=== PATIENT | female | born 1960 | race Two or more races ===

== ENCOUNTER 2024-03-03 16:07 | Emergency (ER) | payer MEDICAID, SELFPAY ==
[2024-03-03] VITALS (24 sets, daily range): BP systolic 120–135; BP diastolic 75–107; PULSE 120–160; RESP 16–39; TEMP 37.1; O2SAT 90–100; BMI 29.9
--- NOTE | 2024-03-03 18:17 | EDNOTE_ITS ---
ED Arrhythmia Palp. RME/HPI General Chief Complaint: Arrhythmia/Palpitations Stated Complaint: AFIB RVR Time Seen by Provider: 03/03/24 18:25 Arrival date/time: 03/03/24 16:07 RME / HPI RME / HPI narrative: Dr. Morrison?s Main ED Evaluation: 63yo female with pmhx COPD, asthma, aFib, HTN, DM BIBA presents to the ED for complaints of a cough and palpitations. Patient states she was seen by her PCP today due to having a cough for the last 2 weeks. She reports associated shortness of breath that worsens when she ambulates and lays flat. She denies any fever, chills or any other associated symptoms. Denies any sick contacts. She is not on any oxygen at home. Patient states she has not taken any of her medications in over a year due to having problems with her insurance. She does not have an inhaler or nebulizer machine. She denies any tobacco use, reporting she hasn't smoked in 2 weeks. PCP: D[facility] [employer] Program Manager: Antonioiz Related Data Previous Rx's ?Medication ?Instructions ?Recorded albuterol sulfate 90 mcg/actuation 1 inh inhalation QID PRN shortness 03/03/24 aerosol inhaler of breath or wheezing #8.5 grams apixaban 5 mg tablet (Eliquis) 5 mg PO BID #60 tabs 03/03/24 diltiazem HCl 240 mg capsule,24 240 mg PO QAM #30 caps 03/03/24 hr,extended release prednisone 50 mg tablet 50 mg PO QDAY #5 tabs 03/03/24 Allergies Allergy/AdvReac Type Severity Reaction Status Date / Time ibuprofen Allergy Severe TONGUE Verified 11/26/22 09:28 SWELLS aspirin Allergy Mild RASH Verified 11/26/22 09:28 Penicillins Allergy Mild Rash Verified 11/26/22 09:28 Review of Systems Review of Systems Systems Reviewed: All systems reviewed, normal except as documented Narrative Review of Systems: Gen: No fever, no chills, no weight loss EYES: No discharge, no visual changes, no pain HEENT: No ear pain, no congestion, no sore throat PULM: + shortness of breath, + cough, no congestion CV: No chest pain, no dyspnea on exertion, + palpitations GI: No nausea, no vomiting, no diarrhea, no pain, no constipation : No frequency, no urgency, no dysuria Musc/skel: No joint pain, no back pain Skin: No rash. Warm and dry. Psyc: No hallucinations, no depression Heme/Lymph: No easy bleeding or bruising tendencies Neuro: No weakness, no headache Past Medical History Past Medical History NEUROLOGIC: Positive Neurological Disorders and Migraine CARDIAC: Positive Cardiac Disorders, Cardiac Arrhythmia, Atrial Fibrillation, Hypercholesterolemia and Hypertension; Negative Congestive Heart Failure RESPIRATORY: Positive Chronic Obstructive Pulmonary Disease (COPD), Asthma, Pneumonia and Sleep Apnea GASTROINTESTINAL: Positive Gastrointestinal Disorders and Gall Bladder Disease GENITOURINARY: Negative Genitourinary Disorders or Renal Disease MUSCULOSKELETAL: Positive Musculoskeletal Disorders and Degenerative Disk Disease ENDOCRINE: Positive Endocrine Disorders and Diabetes Mellitus Type 2; Negative Diabetes Mellitus Type 1 HEMATOLOGIC: Negative Sickle Cell Disease PSYCHO/SOCIAL: Positive Schizophrenia, Bipolar Disorder, Depression, Anxiety and Post Traumatic Stress Disorder Family History FAMILY HISTORY: Positive Family Respiratory Disorders, Family Cardiac Disorders and Family Gastrointestinal Problems; Negative Family Neurologic Problems Surgical History SURGICAL: Positive Abdominal Surgery and Section Social History SMOKING STATUS: Former smoker SECOND HAND EXPOSURE: Yes SUBSTANCE USE: marijuana and methamphetamine OCCUPATION: unemployed ED Exam Narrative Physical exam: GENERAL APPEARANCE: AxOx4, generally well-appearing, no acute distress. HEENT: NC, AT. MMM. EOMI, clear conjunctiva, oropharynx clear. NECK: Supple without lymphadenopathy. No stiffness or restricted ROM. HEART: Normal rate and regular rhythm, normal S1/S1, no m/r/g LUNGS: Moving air well. Inspiratory and expiratory wheezes. No crackles heard. ABDOMEN: Soft, nontender, nondistended with good bowel sounds heard. BACK: No midline C/T/L spine pain, [id number]-aw-zccxov scoliosis, No CVAT, no obvious deformity. EXTREMITIES: Without cyanosis, clubbing or edema. MUSCULOSKELETAL: FROM of all major joints, no chest tenderness NEUROLOGICAL: Grossly nonfocal. Alert and oriented, moving all 4 extremities. CN not formally tested but appear grossly intact. Observed to ambulate with normal gait. Skin: Warm and dry without any rash. Course Course Course Narrative: CXR is ordered for determining the etiology of cough. Quality Measures none Reevaluation(s) Reevaluation #1: Patient feels better compared to when she initially came in, but still has small coughing episodes. Patient is still tachycardic in the 120s after receiving Cardizem 60mg. Additional Cardizem 30mg ordered before the patient is discharged home. Will send an albuterol inhaler and steroids to her pharmacy. Time: 23:15 Vital Signs Vital signs: Vital Signs Temperature 98.7 F 03/03/24 16:10 Pulse Rate 138 H 03/03/24 16:10 Respiratory Rate 16 03/03/24 16:10 Blood Pressure 135/75 H 03/03/24 16:10 Pulse Oximetry (%) 98 03/03/24 16:10 Oxygen Delivery Method Room Air 03/03/24 16:10 Pulse ox is 98% on room air, which is normal according to my interpretation. Arrhythmia/Palpitations MDM Narrative MDM Narrative:: Scribe Attestation: 03/03/24 - Tita Herrera am scribing for and in the presence of Dr. Morrison. Patient data External records reviewed:: [facility] previous records (Per chart review, patient was seen here on 03/26/23 for COPD.) Clinical information provided by:: patient Social determinants that could affect healthcare access:: none Patient has the following chronic illnesses:: COPD, asthma, aFib, HTN, DM How is presenting disease/condition affected by chronic disease/condition?: caused by Evaluation data The following diagnostics were reviewed and interpreted by me:: lab results, radiology exam(s) and EKG tracing(s) Lab and/or radiology exams considered but not ordered:: none Interpretation Summary: WBC count is normal, HnH is stable at 10.5/33.0, BUN is elevated at 24, UA is unremarkable, according to my interpretation. EKG done at 1717, aFib RvR, rate of 153, normal intervals, normal axis, no acute ST or T wave changes, according to my interpretation. ------ [place] [facility] Report Signed Patient: JHOANA JUAREZ [facility]. Record#: [id number] Birthdate: 1960 Age/Sex: 63 / F Location: [facility] Attending Dr: Ordering Physician: Ron Morrison MD Date of Service: 03/03/24 Procedure(s): XR chest 2V Accession Number(s): [id number] cc: Wilbert Gallego MD; Ron Morrison MD; Cruz Onofre MD~ Examination: PA lateral chest 2 views Technique: Upright PA lateral chest 2 views Exam date and time: March 03, 2024 1857 hrs. Comparison 12/25/2023 Indications: Onset shortness of breath and atrial fibrillation today. Findings: Mild to moderate enlargement left ventricle Moderate vascular congestion Suspicious for early septal edema at the lung bases Moderate osteopenia Impression: Early heart failure Dictated By: Cruz Onofre MD Signed By: <Electronically signed by Cruz Onofre MD in OV> 03/03/24 1910 Medications / Prescriptions Medications or Prescriptions considered but not ordered:: none Medication administrations:: see above, if any Consultations Consultation(s) initiated? (list below): No Diagnosis Differential diagnosis arrhythmia/palpitations: sinus tachycardia, artial fibrillation, artial flutter and other (COPD exacerbation, hyperglycemia without ketosis) Most likely diagnosis given after review of the tests above:: see below Admission Indicated Admission indicated?: not indicated Admission Request Was there a request for admission?: No Disposition Plan Disposition Plan: Discharge Discharge Attestation Discharge Attestation: The patient and all family members were given an opportunity to ask questions and understood the discharge instructions. Discharge instructions specifically effects, indications for sooner follow up or return to the emergency department, and the expected course of current diagnosis. Patient condition: Stable Critical Care Time Critical Care Time Critical Care Time: Yes Total Critical Care Time (min.): 36 Attestation: The high probability of sudden, clinically significant deterioration in the patient?s condition required the highest level of my preparedness to intervene urgently. The services I provided to this patient were to treat and/or prevent clinically significant deterioration. Services included the following: chart data review, reviewing nursing notes and/or old charts, documentation time, organization development consultant collaboration regarding findings and treatment options, medication orders and management, direct patient care, vital sign assessments and ordering, interpreting and reviewing diagnostic studies and lab tests. Aggregate critical care time includes only time during which I was engaged in work directly related to the patient?s care, as described above, whether at bedside or elsewhere in the Emergency Department. It did not include time spent performing other reported procedures or the services of residents, students, nurses or physician assistants. Discharge Plan Plan Patient Disposition: HOME (Self Care) Prescriptions/Referrals Prescriptions/Med Rec: New albuterol sulfate 90 mcg/actuation HFA aerosol inhaler 1 inh inhalation QID PRN (Reason: shortness of breath or wheezing) Qty: 8.5 0RF prednisone 50 mg tablet 50 mg PO QDAY Qty: 5 0RF Eliquis 5 mg tablet 5 mg PO BID Qty: 60 0RF diltiazem HCl 240 mg capsule,extended release 24 hr 240 mg PO QAM Qty: 30 0RF Referrals: Wilbert Gallego MD [Primary Care Provider] - In 1 week Problem List Clinical Impression: Atrial fibrillation, rapid, COPD exacerbation, Atrial fibrillation Patient/Caregiver Discharge Instructions Education Materials: COPD Meds, ED Atrial Fibrillation Additional Instructions: Follow-up with your primary care doctor in 2 to 3 days for recheck. You can return to the emergency department sooner symptoms worsen or if you notice any new, concerning issues. Print Language: Syriac Stand Alone Forms: [facility]ia Award Info., Patient Portal Info Letter
--- NOTE | 2024-03-03 18:28 | PC.NURSE ---
DR GAGNON AT BEDSIDE ASSESSING PATIENT.
--- NOTE | 2024-03-03 18:47 | XR_ITS ---
Examination: PA lateral chest 2 views Technique: Upright PA lateral chest 2 views Exam date and time: March 03, 2024 1857 hrs. Comparison 12/25/2023 Indications: Onset shortness of breath and atrial fibrillation today. Findings: Mild to moderate enlargement left ventricle Moderate vascular congestion Suspicious for early septal edema at the lung bases Moderate osteopenia Impression: Early heart failure
[2024-03-03 18:57] LABS: Basophils # (Auto) 0.1 Thou/mm3 (0.0-0.2); Basophils % (Auto) 1 % (0-2.5); Eosinophils % (Auto) 10 % (0-10); Hemoglobin 10.5 g/dL (12.0-16.0); Immature Granulocytes % (Auto) 0 % (0-0); Immature Granulocytes Auto 0.03 Thou/mm3 (0.00-0.00); Lymphocytes # (Auto) 2.6 Thou/mm3 (1.0-4.8); Lymphocytes % (Auto) 26 % (10-50); Mean Corpuscular HGB Conc 31.8 g/dl (31.0-37.0); Mean Corpuscular Hemoglobin 27.9 pg (25.0-35.0); Mean Corpuscular Volume 88 fL (80-100); Monocytes # (Auto) 0.7 Thou/mm3 (0.0-0.8); Monocytes % (Auto) 7 % (0-12); Neutrophils # (Auto) 5.6 Thou/mm3 (1.8-7.7); Neutrophils % (Auto) 56 % (37-80); Nucleated Red Blood Cell % 0 /100 WBC (0); Platelet Count 442 Thou/mm3 (140-440); RDW Standard Deviation 45.9 fL (36.4-46.3); Red Blood Count 3.77 Miln/mm3 (4.00-5.20); White Blood Count 9.9 Thou/mm3 (3.6-11.0)
[2024-03-03 19:15] LABS: Alanine Aminotransferase 27 U/L (10-49); Albumin, Serum 4.2 gm/dL (3.4-4.8); Albumin/Globulin Ratio 1.2 (1.2-2.2); Alkaline Phosphatase 95 U/L (46-116); Anion Gap 8 (7-16); Aspartate Amino Transferase 16 U/L (0-34); BUN/Creatinine Ratio 24 Ratio (12-20); Bilirubin,Total 0.9 mg/dL (0.3-1.2); Blood Urea Nitrogen 17 mg/dL (9-23); Calcium 9.4 mg/dL (8.3-10.6); Calcium (Corrected) 9.4 mg/dL (8.5-10.1); Carbon Dioxide 27.3 mMol/L (20.0-31.0); Chloride 102 mMol/L (98-107); Creatinine (Component) 0.7 mg/dL (0.6-1.3); Globulin 3.5 gm/dL (2.3-3.5); Glucose 93 mg/dL (74-106); Osmolality,Calculated 275 (275-295); Potassium 3.7 mMol/L (3.4-5.1); Sodium 137 mMol/L (136-145); Total Protein 7.7 gm/dL (5.7-8.2); eGFR > 60 See Note
[2024-03-03] MEDS: ALBUTEROL/IPRATROPIUM (Duoneb) RT SOL 3 ML NEBU INH (21:22)
[2024-03-03] MEDS: FUROSEMIDE INJ 10 MG/ML 4ML VIAL 40 MG IVP (21:37)
[2024-03-03] MEDS: DILTIAZEM 30 MG TABLET 60 MG PO (21:39)
[2024-03-03] MEDS: predniSONE 20 MG TABLET 60 MG PO (21:40)
[2024-03-03 22:10] LABS: Collection Type, Urine Clean Catch
[2024-03-03 22:14] LABS: Bilirubin,Urine Negative (Negative); Blood,Urine Negative (Negative); Clarity,Urine Clear (Clear/Hazy); Color,Urine Yellow (Lt Yel-Yel); Glucose, Urine 3+ (Negative); Ketones,Urine Negative (Negative); Leukocyte Esterase,Urine Positive (Negative); Nitrite,Urine Negative (Negative); Protein,Urine Trace (Neg - Trace); RBC,Urine 3 /hpf (0-3); Specific Gravity,Urine 1.023 (1.001-1.035); Squamous Epithelial Cell,Urine 1 /hpf (0-5); WBC,Urine 12 /hpf (0-5)
[2024-03-03] MEDS: DILTIAZEM 30 MG TABLET PO (23:32)
== END 2024-03-04 00:15 | disposition home or self-care (01) ==
PROVIDERS: Emergency Provider Emergency Medicine; PCP Family Medicine
DX: I48.91 Unspecified atrial fibrillation (principal); J44.1 Chronic obstructive pulmonary disease with (acute) exacerbation; I11.0 Hypertensive heart disease with heart failure; I50.9 Heart failure, unspecified; Z87.891 Personal history of nicotine dependence
CPT/HCPCS: 36415; 71046; 80053; 81001; 85025; 94640; 96374; 99284; A9270; J1940; J7512

== ENCOUNTER 2024-03-26 23:56 | Inpatient (IN) | payer MEDICAID, SELFPAY ==
[2024-03-27] VITALS (34 sets, daily range): BP systolic 99–172; BP diastolic 73–149; PULSE 84–158; RESP 16–29; TEMP 36.5–36.7; O2SAT 82–100; BMI 34.0
--- NOTE | 2024-03-27 | PC.NURSE ---
PT FERDINANDA FROM [facility] WITH C/O AMS, SOB. PER EMS ON ARRIVAL PT WAS SATING 82% ON RA, WITH AUDITORY WHEEZING. PT PLACED ON 6L NC AND SATURATIONS IMPROVED TO 100%. 1 NEB TX GIVEN EN ROUTE. PT PRESENTED TO ER RESTLESS. GCS 14, A/OX1. PT PLACED ON MONITOR. ORDERS IN PLACE. PT CARE ON GOING.
--- NOTE | 2024-03-27 00:07 | PD.EDSOB ---
ED SOB =RME/HPI General Chief Complaint: Shortness of Breath/Dyspnea Stated Complaint: SOB Time Seen by Provider: 03/27/24 00:11 Arrival date/time: 03/26/24 23:56 RME / HPI RME / HPI Narrative: Dr. Saeed?s Main ED Evaluation: 63yo female with pmhx COPD, asthma, aFib, HTN, [facility] to [facility] ED for a chief complaint of shortness of breath. Per EMS, patient was saturating at 82% RA on scene and went up to 100% on 6L. One breathing treatment was administered en route. EMS notes the patient was altered on scene and was not answering questions. Full ROS is unobtainable due to the patient's AMS. Related Data Previous Rx's ?Medication ?Instructions ?Recorded albuterol sulfate 90 mcg/actuation 1 inh inhalation QID PRN shortness 03/03/24 aerosol inhaler of breath or wheezing #8.5 grams apixaban 5 mg tablet (Eliquis) 5 mg PO BID #60 tabs 03/03/24 diltiazem HCl 240 mg capsule,24 240 mg PO QAM #30 caps 03/03/24 hr,extended release prednisone 50 mg tablet 50 mg PO QDAY #5 tabs 03/03/24 Allergies Allergy/AdvReac Type Severity Reaction Status Date / Time ibuprofen Allergy Severe TONGUE Verified 11/26/22 09:28 SWELLS aspirin Allergy Mild RASH Verified 11/26/22 09:28 Penicillins Allergy Mild Rash Verified 11/26/22 09:28 Review of Systems Review of Systems ROS Unobtainable: unobtainable due to mental status Past Medical History Past Medical History NEUROLOGIC: Positive Neurological Disorders and Migraine CARDIAC: Positive Cardiac Disorders, Cardiac Arrhythmia, Atrial Fibrillation, Hypercholesterolemia and Hypertension; Negative Congestive Heart Failure RESPIRATORY: Positive Chronic Obstructive Pulmonary Disease (COPD), Asthma, Pneumonia and Sleep Apnea GASTROINTESTINAL: Positive Gastrointestinal Disorders and Gall Bladder Disease GENITOURINARY: Negative Genitourinary Disorders or Renal Disease MUSCULOSKELETAL: Positive Musculoskeletal Disorders and Degenerative Disk Disease ENDOCRINE: Positive Endocrine Disorders and Diabetes Mellitus Type 2; Negative Diabetes Mellitus Type 1 HEMATOLOGIC: Negative Sickle Cell Disease PSYCHO/SOCIAL: Positive Schizophrenia, Bipolar Disorder, Depression, Anxiety and Post Traumatic Stress Disorder Family History FAMILY HISTORY: Positive Family Respiratory Disorders, Family Cardiac Disorders and Family Gastrointestinal Problems; Negative Family Neurologic Problems Surgical History SURGICAL: Positive Abdominal Surgery and Section Social History SMOKING STATUS: Never smoker SECOND HAND EXPOSURE: Yes SUBSTANCE USE: marijuana and methamphetamine OCCUPATION: unemployed ED Exam Narrative Physical exam: GENERAL APPEARANCE: arouses to loud voices and touch, but gives 1 word answers and falls back asleep, well-developed, well-nourished, no acute distress VITALS: All vitals were reviewed and the pulse ox is 95% on room air, which is normal according to my interpretation. HEENT: Normocephalic, atraumatic; pupils equal, round, reactive to light; EOMI; mucous membranes pink, moist; oropharynx clear NECK: Supple LUNGS: Coarse breath sounds bilaterally; tachypneic, diffuse wheezes, no rales, no rhonchi HEART: Irregularly irregular tachycardia; normal S1, S2; no murmurs ABDOMEN: non distended; normal BS; soft, no tenderness, no guarding, no rebound; no masses, no organomegaly, no hernia BACK: no CVA tenderness : Female chaperones present. Extensive tinea cruris involving the lower abdomen and medial thighs with excoriasions, EXTREMITIES: atraumatic; no edema NEUROLOGIC: arousable to loud voice and touch; cranial nerves II-XII grossly intact; no focal sensory or motor deficits PSYCHIATRIC: appropriate mood and affect SKIN: warm, dry, normal color; no rashes Course Course Course Narrative: CXR is ordered for determining the etiology of shortness of breath. Quality Measures none Orders Category Date Time Status Bedside COVID-19 Antigen Test NOW Care 03/27/24 00:40 Active Bedside Influenza A&B Antigen Test NOW Care 03/27/24 00:40 Completed Ed Physicians NOW Care 03/27/24 00:13 Active Continuous Pulse Oximetry NOW Care 03/27/24 00:13 Completed EKG (ED ONLY) *Do not use* NOW Care 03/27/24 00:13 Completed Insert IV NOW Care 03/27/24 00:[address] head/brain wo con Stat Exams 03/27/24 01:10 Taken EKG (ED Only) Stat Exams 03/27/24 00:13 Draft XR chest 1V portable Stat Exams 03/27/24 00:13 Taken Alcohol, Blood Medical Stat Lab 03/27/24 00:44 Completed Arterial Blood Gas Stat Lab 03/27/24 00:57 Completed B-Type Natriuretic Peptide Stat Lab 03/27/24 00:44 Completed CBC Stat Lab 03/27/24 00:44 Completed Comprehensive Metabolic Panel Stat Lab 03/27/24 00:44 Completed Drug Screen,Urine Stat Lab 03/27/24 00:23 Completed Magnesium Stat Lab 03/27/24 00:44 Completed Partial Thromboplastin Time Stat Lab 03/27/24 00:44 Completed Prothrombin Time with INR Stat Lab 03/27/24 00:44 Completed Troponin I Stat Lab 03/27/24 00:44 Completed Urinalysis, C/S if Indicated Stat Lab 03/27/24 00:23 Completed Albuterol/Ipratr Rt Amada [Duoneb Rt Amada] Med 03/27/24 00:13 Discontinued 3 ml INH X1 ONE Diltiazem Inj [Cardizem Inj] Med 03/27/24 02:36 Discontinued 10 mg IV X1 ONE MethylPREDNISolone.* [SoluMEDROL Inj] Med 03/27/24 00:13 Discontinued 125 mg IV X1 ONE Reevaluation(s) Reevaluation #1: Patient's blood pressure is 118/68 with a HR of 110s-120s after receiving Cardizem 10mg. Will consult an admission to the hospitalist due to the patient's AMS. Time: 03:04 Vital Signs Vital signs: Vital Signs Pulse Rate 142 H 03/27/24 00:11 Respiratory Rate 24 H 03/27/24 00:11 Blood Pressure 131/105 H 03/27/24 00:11 Pulse Oximetry (%) 95 03/27/24 00:11 Oxygen Delivery Method Room Air 03/27/24 00:11 Shortness of Breath / Dyspnea MDM Narrative MDM Narrative:: Scribe Attestation: 03/27/24 Tita Chambers am scribing for and in the presence of Dr. Saeed. Patient data External records reviewed:: [facility] previous records (Per chart review, patient was seen here on 03/03/24 for aFib.) Clinical information provided by:: EMS Social determinants that could affect healthcare access:: substance use Patient has the following chronic illnesses:: COPD, asthma, aFib, HTN, DM How is presenting disease/condition affected by chronic disease/condition?: exacerbated by Evaluation data The following diagnostics were reviewed and interpreted by me:: lab results, radiology exam(s) and EKG tracing(s) Lab and/or radiology exams considered but not ordered:: none Interpretation Summary: Bedside COVID and Influenza are negative, CBC is normal, ABG shows a low pH of 7.26, elevated pCO2 of 57; CMP is normal, troponin is normal, BNP is 213, UA is unremarkable, UDS is positive for methamphetamines and marijuana, Blood Alcohol is negative, according to my interpretation. EKG done at 0031, aFib, rate of 149, normal axis, no STEMI, according to my interpreatation. ------ [facility] Preliminary Report Draft Patient: JHOANA JUAREZ [facility]. Record#: [id number] Birthdate: 1960 Age/Sex: 63 / F Location: [facility] Attending Dr: Ordering Physician: Date of Service: Procedure(s): Accession Number(s): cc: ~ CT scan of the head without intravenous contrast (axial sections with sagittal and coronal reformats) March 27, 2024 0134 hours Clinical history: AMS Compared with the prior study dated November 26, 2022 Findings: The evaluation is slightly limited due to motion artifacts. There is no definitive evidence of intracranial hemorrhage, mass effect or midline shift. Again noted is a chronic infarct in the right frontal lobe. There are periventricular white matter hypodensities, compatible with chronic small vessel ischemia. No definitive wedge shaped acute infarcts are detected. Please note that subtle early infarcts are better assessed using diffusion weighted MR imaging if clinically indicated. There is mild volume loss. The calvarium is unremarkable. There is mild mucosal thickening in bilateral ethmoid and maxillary sinuses. The mastoid air cells and the other visualized paranasal sinuses are clear. Impression: Limited evaluation due to motion artifact. No definitive evidence of intracranial hemorrhage, mass effect or midline shift. If there are persistent clinical symptoms or additional clinical concerns consider an MRI. Generalized cerebral atrophy and chronic small vessel ischemic change with chronic infarcts as described above. Report Electronically Signed By: Jose Mccracken 03/27/2024 2:26:29 AM Medications / Prescriptions Medications or Prescriptions considered but not ordered:: none Medication administrations:: Medication Administration History Discontinued Medications Albuterol/Ipratropium (Albuterol/Ipratropium (Duoneb) Rt Amada 3 Ml Nebu) 3 ml INH X1 ONE Stop: 03/27/24 00:14 Last Admin: 03/27/24 00:46 Dose: 3 ml Documented By: ESTEFANIA Diltiazem HCl (Diltiazem Inj 5 Mg/Ml Vial 5 Ml) 10 mg IV X1 ONE Stop: 03/27/24 02:37 Last Admin: 03/27/24 02:51 Dose: 10 mg Documented By: DEVANTE Methylprednisolone Sodium Succinate (Methylprednisolone Sod Succ 62.5 Mg/Ml 2ml Vial) 125 mg IV X1 ONE Stop: 03/27/24 00:14 Last Admin: 03/27/24 00:34 Dose: 125 mg Documented By: DEVANTE see above Consultations Consultation(s) initiated? (list below): Yes Consultation #1 (Physician, Specialty, Details): Discussed case with [Dr. Motta, attending Dr. Sánchez] from Hospitalist service regarding admission. Discussed patients ED course, exam findings, labs, and radiology results. The Hospitalist [agrees] to accept the patient for admission. Time: 03:05 Diagnosis Shortness of Breath Differential Diagnosis: other (ICH, subarachnoid hemorrhage, encephalitis, thyrotoxicosis, alcohol withdrawal, methamphetamine overdose, cocaine overdose) Most likely diagnosis given after review of the tests above:: see below Admission Indicated Admission indicated?: indicated Admission Request Was there a request for admission?: Yes Admission Attestation Admission request attestation: Discussed case with [] from Hospitalist service regarding admission. Discussed patients ED course, exam findings, labs, and radiology results. The Hospitalist [agrees,declines] to accept the patient for admission. Disposition Plan Disposition Plan: Admit Critical Care Time Critical Care Time Critical Care Time: Yes Total Critical Care Time (min.): 45 Attestation: The high probability of sudden, clinically significant deterioration in the patient?s condition required the highest level of my preparedness to intervene urgently. The services I provided to this patient were to treat and/or prevent clinically significant deterioration. Services included the following: chart data review, reviewing nursing notes and/or old charts, documentation time, sr solutions consultant collaboration regarding findings and treatment options, medication orders and management, direct patient care, vital sign assessments and ordering, interpreting and reviewing diagnostic studies and lab tests. Aggregate critical care time includes only time during which I was engaged in work directly related to the patient?s care, as described above, whether at bedside or elsewhere in the Emergency Department. It did not include time spent performing other reported procedures or the services of residents, students, nurses or physician assistants. = Discharge Plan Plan Patient Disposition: Admit Acute Care w/in Hospital Prescriptions/Referrals Prescriptions/Med Rec: No Action albuterol sulfate 90 mcg/actuation HFA aerosol inhaler 1 inh inhalation QID PRN (Reason: shortness of breath or wheezing) Qty: 8.5 0RF prednisone 50 mg tablet 50 mg PO QDAY Qty: 5 0RF Eliquis 5 mg tablet 5 mg PO BID Qty: 60 0RF diltiazem HCl 240 mg capsule,extended release 24 hr 240 mg PO QAM Qty: 30 0RF Problem List Clinical Impression: COPD exacerbation, Altered mental status, Atrial fibrillation with rapid ventricular response, Overdose of methamphetamine Patient/Caregiver Discharge Instructions Print Language: Ukrainian Stand Alone Forms: Sofia Award Info., Patient Portal Info Letter
--- NOTE | 2024-03-27 00:13 | EKG_ITS ---
[facility] Test Date: 2024-03-27 Pat Name: JHOANA JUAREZ Department: Room: - Gender: Female [employer]: : 1960 Requested By: Dru Domínguez Order Number: [id number] Reading MD: Dru Domínguez Measurements Intervals [place] Rate: 149 P: [place]: QRS: 47 QRSD: 74 T: 87 QT: 288 QTc: 454 Interpretive Statements ATRIAL FIBRILLATION WITH RAPID VENTRICULAR RESPONSE ABNORMAL RHYTHM ECG Compared to ECG 05/06/2022 10:31:22 Atrial flutter no longer present /store/S0/[id number].pdf
--- NOTE | 2024-03-27 00:13 | XR_ITS ---
Examination: AP chest single view Technique one AP portable semiupright chest single view Exam date and time: March 27, 2024 0111 hours INDICATIONS: Dyspnea shortness of breath today FINDINGS: Mild heart failure Mild enlargement cardiac contour Prominent vascular congestion No lobar pneumonia Prominent osteopenia IMPRESSION: Mild heart failure
[2024-03-27 00:28] LABS: Collection Type, Urine Catheter
[2024-03-27] MEDS: MethylPREDNISolone SOD SUCC 62.5 MG/ML 2ML VIAL 125 MG IV (00:34)
[2024-03-27 00:41] LABS: Bilirubin,Urine Negative (Negative); Blood,Urine Negative (Negative); Clarity,Urine Clear (Clear/Hazy); Color,Urine Yellow (Lt Yel-Yel); Culture Indicated,Urine Not Indicated; Glucose, Urine Negative (Negative); Ketones,Urine Negative (Negative); Leukocyte Esterase,Urine Negative (Negative); Nitrite,Urine Negative (Negative); PH,Urine 5.5 (5.0-7.0); Protein,Urine Trace (Neg - Trace); RBC,Urine 1 /hpf (0-3); Specific Gravity,Urine 1.031 (1.001-1.035); Squamous Epithelial Cell,Urine 2 /hpf (0-5); Urobilinogen,Urine Negative mg/dL (0.0-1.0); WBC,Urine 2 /hpf (0-5)
[2024-03-27] MEDS: ALBUTEROL/IPRATROPIUM (Duoneb) RT SOL 3 ML NEBU INH (00:46)
[2024-03-27 01:02] LABS: Amphetamine/Methamp Scrn,U Positive (Negative); Barbiturate Screen,Urine Negative (Negative); Benzodiazepines Screen,Urine Negative (Negative); Benzoylecgonine Screen, Ur Negative (Negative); Fentanyl Screen,Urine Negative (Negative); Opiate Screen,Urine Negative (Negative); THC Screen,Urine Positive (Negative)
[2024-03-27 01:04] LABS: Base Excess -2 (-3-3); HCO3 25 mEq/L (20-26); Inspired Oxygen, FIO2 21 %; O2 Saturation 92 % (91-98); PCO2 57 mmHg (32.0-48.0); PO2 71 mmHg (83-108); pH, Arterial 7.26 (7.35-7.45)
[2024-03-27 01:05] LABS: Allen Test Performed/OK; Puncture Site Left Radial
[2024-03-27 01:06] LABS: Basophils # (Auto) 0.1 Thou/mm3 (0.0-0.2); Basophils % (Auto) 1 % (0-2.5); Eosinophils # (Auto) 0.8 Thou/mm3 (0.0-0.5); Eosinophils % (Auto) 8 % (0-10); Hematocrit 38.2 % (36.0-46.0); Hemoglobin 11.8 g/dL (12.0-16.0); Immature Granulocytes % (Auto) 0 % (0-0); Immature Granulocytes Auto 0.03 Thou/mm3 (0.00-0.00); Lymphocytes # (Auto) 2.9 Thou/mm3 (1.0-4.8); Lymphocytes % (Auto) 30 % (10-50); Mean Corpuscular HGB Conc 30.9 g/dl (31.0-37.0); Mean Corpuscular Hemoglobin 27.2 pg (25.0-35.0); Mean Corpuscular Volume 88 fL (80-100); Monocytes # (Auto) 0.7 Thou/mm3 (0.0-0.8); Monocytes % (Auto) 7 % (0-12); Neutrophils # (Auto) 5.2 Thou/mm3 (1.8-7.7); Neutrophils % (Auto) 54 % (37-80); Nucleated Red Blood Cell % 0 /100 WBC (0); Platelet Count 285 Thou/mm3 (140-440); RDW Standard Deviation 46.5 fL (36.4-46.3); Red Blood Count 4.34 Miln/mm3 (4.00-5.20); White Blood Count 9.6 Thou/mm3 (3.6-11.0)
--- NOTE | 2024-03-27 01:10 | XR_ITS ---
Examination: CT brain head without contrast. 2-D sagittal coronal reconstructions Date and time of exam:April 04, 2024 0134 hrs. Indications: Altered mental status today methamphetamine intoxication with hypertension CTDI: vol (mGy):51.80 DLP: (mGycm):1144 Technique: Multiple CT axial sections of the brain have been obtained, 5 mm slice thickness. Contrast has not been administered. 2-D sagittal, coronal reconstructions have been obtained Low dose protocols were performed. One or more of the following dose reduction techniques were used; automated exposure control, adjustment of the mA and/or KV according to patient size, use of iterative reconstruction technique. Findings: Study is limited secondary to patient motion No gross hemorrhage mass effect or midline shift Impression: Study is significantly limited secondary to patient motion No gross hemorrhage mass effect or midline shift
[2024-03-27 01:22] LABS: Alanine Aminotransferase 44 U/L (10-49); Albumin, Serum 4.2 gm/dL (3.4-4.8); Albumin/Globulin Ratio 1.2 (1.2-2.2); Alkaline Phosphatase 88 U/L (46-116); Anion Gap 7 (7-16); Aspartate Amino Transferase 32 U/L (0-34); BUN/Creatinine Ratio 27 Ratio (12-20); Bilirubin,Total 0.4 mg/dL (0.3-1.2); Blood Urea Nitrogen 24 mg/dL (9-23); Carbon Dioxide 27.1 mMol/L (20.0-31.0); Chloride 110 mMol/L (98-107); Creatinine (Component) 0.9 mg/dL (0.6-1.3); Estimated Creatinine Clearance 62.8 mL/min (>60); Globulin 3.4 gm/dL (2.3-3.5); Glucose 139 mg/dL (74-106); Magnesium 2.1 mg/dL (1.6-2.6); Osmolality,Calculated 292 (275-295); Potassium 4.1 mMol/L (3.4-5.1); Sodium 144 mMol/L (136-145); Total Protein 7.6 gm/dL (5.7-8.2); Troponin I < 0.020 ng/mL (0.0-0.045); eGFR > 60 See Note
[2024-03-27 01:30] LABS: INR 1.1 (0.9-1.3); Partial Thromboplastin Time 21.5 Seconds (22.0-36.0); Prothrombin Time 11.7 Seconds (9.0-12.2)
[2024-03-27 01:32] LABS: B-Type Natriuretic Peptide 213 pg/mL (0-100)
[2024-03-27 01:49] LABS: Alcohol, Blood Medical < 3.0 mg/dL (0-10.0)
--- NOTE | 2024-03-27 02:27 | PRELIM_ITS ---
CT scan of the head without intravenous contrast (axial sections with sagittal and coronal reformats) March 27, 2024 0134 hours Clinical history: AMS Compared with the prior study dated November 26, 2022 Findings: The evaluation is slightly limited due to motion artifacts. There is no definitive evidence of intracranial hemorrhage, mass effect or midline shift. Again noted is a chronic infarct in the right frontal lobe. There are periventricular white matter hypodensities, compatible with chronic small vessel ischemia. No definitive wedge shaped acute infarcts are detected. Please note that subtle early infarcts are better assessed using diffusion weighted MR imaging if clinically indicated. There is mild volume loss. The calvarium is unremarkable. There is mild mucosal thickening in bilateral ethmoid and maxillary sinuses. The mastoid air cells and the other visualized paranasal sinuses are clear. Impression: Limited evaluation due to motion artifact. No definitive evidence of intracranial hemorrhage, mass effect or midline shift. If there are persistent clinical symptoms or additional clinical concerns consider an MRI. Generalized cerebral atrophy and chronic small vessel ischemic change with chronic infarcts as described above. Report Electronically Signed By: Jose Mccracken 03/27/2024 2:26:29 AM [EST]
[2024-03-27] MEDS: DILTIAZEM INJ 5 MG/ML VIAL 5 ML 10 MG IV ×2 (02:51→03:47)
--- NOTE | 2024-03-27 04:25 | ECHO_ITS ---
Transthoracic Echo Report Ht (in): 61 Wt (lb): 180 Exam Location: Echo Lab Status: Emergency Assistant At Surgery: Ching Smallwood Indications: Procedure Performed: BP: 99 / 73 HR: 100 Technical Quality: Technically difficult study MEASUREMENTS (Male / Female) Normal Values 2D ECHO LV Diastolic Diameter PLAX 5.5 cm 4.2 - 5.9 / 3.9 - 5.3 cm LV Systolic Diameter PLAX 4.0 cm IVS Diastolic Thickness 0.7 cm 0.6 - 1.0 / 0.6 - 0.9 cm LVPW Diastolic Thickness 1.1 cm 0.6 - 1.0 / 0.6 - 0.9 cm LV Relative Wall Thickness 0.3 LVOT Diameter 1.7 cm LV Ejection Fraction MOD BP 42.2 % >= 55 % LV Cardiac Index MOD BP 2296.5 cm?/min?m? LV Ejection Fraction MOD 4C 52.5 % LV Cardiac Index MOD 4C 3379.4 cm?/min?m? LV Ejection Fraction 4C AL 52.1 % LV Cardiac Index 4C AL 3414.8 cm?/min?m? LV Ejection Fraction MOD 2C 28.1 % LV Cardiac Index MOD 2C 1276.4 cm?/min?m? LV Ejection Fraction 2C AL 30.8 % LV Cardiac Index 2C AL 1424.2 cm?/min?m? LA Volume Index 40.7 cm?/m? 16 - 28 cm?/m? DOPPLER AV Peak Velocity 153.0 cm/s AV Peak Gradient 9.4 mmHg AV Mean Gradient 5.0 mmHg AV Velocity Time Integral 32.2 cm LVOT Peak Velocity 99.8 cm/s LVOT Peak Gradient 4.0 mmHg LVOT Velocity Time Integral 20.0 cm LVOT Cardiac Index 2374.8 cm?/min?m? AV Area Cont Eq vti 1.4 cm? AV Area Cont Eq pk 1.5 cm? MR Peak Velocity 346.5 cm/s MR Peak Gradient 48.0 mmHg LV E' Lateral Velocity 10.1 cm/s LV E' Septal Velocity 8.6 cm/s TR Peak Velocity 276.5 cm/s TR Peak Gradient 30.6 mmHg PV Peak Velocity 90.9 cm/s PV Peak Gradient 3.3 mmHg FINDINGS Left Ventricle Normal left ventricular size, wall thickness, systolic function with no obvious regional wall motion abnormalities. Normal left ventricular diastolic filling pattern for age. The ejection fraction is visually estimated at 50-55 %. Right Ventricle The right ventricle is normal in size.the right ventricular systolic function is moderately decreased. The estimated right ventricular systolic pressure, 54 mmHg. RAP 15. Left Atrium The left atrial cavity size is mildly increased. Right Atrium The right atrial cavity size is mildly increased. Atrial Septum The interatrial septum appears normal with no evidence of a shunt. Aorta The aorta is normal by two-dimensional, color flow and Doppler interrogation. Mitral Valve The mitral valve is normal by two-dimensional, color flow and Doppler interrogation. There is mild mitral valve regurgitation, stenosis or prolapse. Aortic Valve The aortic valve is trileaflet and normal by two-dimensional, color flow and Doppler interrogation. There is no significant aortic valve regurgitation. Tricuspid Valve The tricuspid valve is normal by two-dimensional, color flow and Doppler interrogation. There is mild tricuspid valve regurgitation. Pulmonic Valve The pulmonic valve is not well visualized. There is no significant pulmonic valve regurgitation. Vessels Dilated inferior vena cava. Pericardium The pericardium is normal by two-dimensional imaging. There is no significant pericardial effusion. CONCLUSIONS Indication: SOB, Methamphetamine abuse Mildly dilated LV with mild systolic dysfunction. LVEF estimate pierre 45-50% Diastolic dysfunction present but cannot be graded due to arrhythymia. RV is normal in size. RV systolic function is mildly decreased. Estimated RVSP, 54 mmHg. RAP 15. Mild RA dilatation. Moderate LA dilation. Mild MR and mild to modertae TR. Dilated IVC Jeffrey Brooks (Electronically Signed) Final Date: 28 March 2024 04:03
--- NOTE | 2024-03-27 04:54 | ESHP_ITS ---
Documentation for date of: 03/27/24 HPI History of Present Illness Chief complaint: Altered mental status History of present illness: Ms. Winston is a 63-year-old female with past medical history of COPD, atrial fibrillation, bipolar disorder, polysubstance use and migraine disorder who presented to [facility] with a chief complaint of altered mental status. Patient was brought in by ambulance, patient was found to have altered mental status by EMS, SpO2 82 and significant wheezing was noted, patient was given a breathing treatment en route to the hospital. On bedside patient is arousable to name, unable to follow commands, is protecting airway, unable to obtain history from patient and most of the history is obtained from patient's chart review and EMS. In the ED on presentation patient's heart rate was 157, EKG showed atrial fibrillation with RVR, patient was given 2 doses of 10 mg IV Dilt, heart rate improved, patient was found to have wheezing significantly, was given methylprednisone 125 x 1 and a breathing treatment which improved patient's breathing, patient currently saturating well on 2 L via oxy mask, bilateral wheezing noted. Patient's U-Tox was positive for methamphetamine and marijuana. Patient will be admitted to hospital for management of acute encephalopathy, COPD exacerbation and atrial fibrillation with RVR. ED Course: ED Vitals: On presentation BP 131/105, P157, RR 24, temp 97.9, O2 sat 95 on room air ED Labs: ED labs significant for Hemoglobin 11.8, MCHC 30.9, APTT 21.5, pH 7.26, pCO2 57 chloride 110, BUN 24, glucose 139, BNP 213 U tox positive for methamphetamine and marijuana ED Imaging: X-ray in ED shows moderate vascular congestion, pending official read CT head preliminary report shows no intracranial hemorrhage, mass effect or midline shift. Generalized cerebral atrophy with chronic small vessel ischemic changes with chronic infarcts ED Treatment:Patient was given methylprednisone 125 IV x 1, DuoNeb x 1, Dilt 10 mg x 2 in ED Review of Systems Review of Systems ROS Unobtainable: unobtainable due to mental status Past Medical History Past Medical History NEUROLOGIC: Positive Neurological Disorders and Migraine CARDIAC: Positive Cardiac Disorders, Cardiac Arrhythmia, Atrial Fibrillation, Hypercholesterolemia and Hypertension; Negative Congestive Heart Failure RESPIRATORY: Positive Chronic Obstructive Pulmonary Disease (COPD), Asthma, Pneumonia and Sleep Apnea GASTROINTESTINAL: Positive Gastrointestinal Disorders GENITOURINARY: Negative Genitourinary Disorders or Renal Disease MUSCULOSKELETAL: Positive Musculoskeletal Disorders and Degenerative Disk Disease ENDOCRINE: Positive Endocrine Disorders and Diabetes Mellitus Type 2; Negative Diabetes Mellitus Type 1 HEMATOLOGIC: Negative Sickle Cell Disease PSYCHO/SOCIAL: Positive Schizophrenia, Bipolar Disorder, Depression, Anxiety and Post Traumatic Stress Disorder Family History FAMILY HISTORY: Negative Family Neurologic Problems Surgical History SURGICAL: Positive Section Social History SMOKING STATUS: Former smoker SECOND HAND EXPOSURE: Yes SUBSTANCE USE: does not use Past Medical History Comments PMH COMMENT: PMH: Positive for COPD, atrial fibrillation, bipolar disorder, polysubstance use and migraine disorder PSHx: Positive for abdominal surgery, section Allergies: Ibuprofen, aspirin, penicillin Social history: -Smoking: Positive for smoking in past -Alcohol Use: Unobtainable -Illicit Drug Use: U tox positive for meth and marijuana Family History: Unobtainable Exam Vital Signs Temp Pulse Resp BP Pulse Ox O2 Del Method O2 Flow Rate 98.0 F 125 H 20 131/85 H 95 Oxy Mask 2 03/27/24 02:33 03/27/24 03:50 03/27/24 03:50 03/27/24 03:50 03/27/24 03:50 03/27/24 03:50 03/27/24 03:50 Narrative Exam Physical Exam General: Arousable to name, responds to pain, moving around in bed. HEENT: Normocephalic, atraumatic, mucous membranes moist. Heart: Atrial fibrillation with RVR noted, no murmurs. Lungs: Bilateral wheezing Abdomen: Soft, nondistended, nontender, positive bowel sounds. Neurologic: Responds to pain, protecting airway, grossly able to move all 4 extremities. Extremities: No edema. Skin: No rash or ecchymoses. Results: Labs 03/27/24 04:53 03/27/24 00:44 Labs: Short CBC 03/27/24 Range/Units 00:44 WBC 9.6 (3.6-11.0) Thou/mm3 Hgb 11.8 L (12.0-16.0) g/dL Hct 38.2 (36.0-46.0) % Plt Count 285 D (140-440) Thou/mm3 BMP 03/27/24 00:44 Sodium 144 Potassium 4.1 Chloride 110 H Carbon Dioxide 27.1 BUN 24 H Creatinine 0.9 Glucose 139 H Calcium 10.0 Cardiac Enzymes 03/27/24 Range/Units 00:44 Troponin I < 0.020 (0.0-0.045) ng/mL Liver Function 03/27/24 Range/Units 00:44 Total Bilirubin 0.4 (0.3-1.2) mg/dL AST 32 (0-34) U/L ALT 44 (10-49) U/L Alkaline Phosphatase 88 (46-116) U/L Albumin 4.2 (3.4-4.8) gm/dL Urine 03/27/24 Range/Units 00:23 Urine Color Yellow (Lt Yel-Yel) Urine Clarity Clear (Clear/Hazy) Urine pH 5.5 (5.0-7.0) Ur Specific [place] 1.031 (1.001-1.035) Urine Protein Trace (Neg - Trace) Urine Glucose (UA) Negative (Negative) ABG Interpretation ABG results: 03/27/24 00:57 ABG pH 7.26 L ABG pCO2 57 H ABG pO2 71 L ABG HCO3 25 ABG O2 Saturation 92 ABG Base Excess -2 Quality Measures Quality Measures none Medications Home Medications and Allergies Allergies Allergy/AdvReac Type Severity Reaction Status Date / Time ibuprofen Allergy Severe TONGUE Verified 11/26/22 09:28 SWELLS aspirin Allergy Mild RASH Verified 11/26/22 09:28 Penicillins Allergy Mild Rash Verified 11/26/22 09:28 Visit Medications Acetaminophen (Acetaminophen Supp 650 Mg Supp) 650 mg DC Q6HR PRN PRN Reason: [id number] Stop: 04/26/24 04:19 Azithromycin 500 mg/ Sodium (Chloride) 250 mls @ 250 mls/hr IV QDAY MANDA Stop: 04/04/24 08:59 Heparin Sodium/Dextrose (Heparin In D5w Ivpb) 25,000 unit in 250 mls @ 9.798 mls/hr IV .Q24H MANDA; Protocol Stop: 04/10/24 04:29 Diltiazem HCl (Diltiazem In D5w 125 Mg) 125 mg in 125 mls @ 5 mls/hr IV .Q24H MANDA Stop: 04/26/24 04:29 Diltiazem HCl (Diltiazem In D5w 125 Mg) 125 mg in 125 mls @ 5 mls/hr IV .Q24H [facility] Stop: 03/28/24 05:44 Azithromycin 500 mg/ Sodium (Chloride) 250 mls @ 250 mls/hr IV X1 ONE Stop: 03/27/24 05:59 Ipratropium [place] (Ipratropium Rt 0.5 Mg/ 2.5 Ml Nebu) mg INH Q4HRRT [facility] Stop: 04/26/24 06:59 Levalbuterol HCl (Levalbuterol Rt 0.63 Mg/3 Ml Nebu) 0.63 mg INH Q4HRRT [facility] Stop: 04/26/24 06:59 Methylprednisolone Sodium Succinate (Methylprednisolone Sod Succ 62.5 Mg/Ml 2ml Vial) 40 mg IVP Q8HR [facility] Stop: 04/03/24 05:59 Ondansetron HCl (Ondansetron Inj 2 Mg/Ml Inj 2 Ml) 4 mg IV Q6H PRN; Protocol PRN Reason: NAUSEA OR VOMITING Stop: 04/26/24 04:19 Pantoprazole Sodium (Pantoprazole Inj 40 Mg Vial) 40 mg IVP QDAY [facility] Stop: 04/26/24 08:59 Discontinued Medications Albuterol/Ipratropium (Albuterol/Ipratropium (Duoneb) Rt [place] 3 Ml Nebu) 3 ml INH X1 ONE Stop: 03/27/24 00:14 Last Admin: 03/27/24 00:46 Dose: 3 ml Diltiazem HCl (Diltiazem Inj 5 Mg/Ml Vial 5 Ml) 10 mg IV X1 ONE Stop: 03/27/24 02:37 Last Admin: 03/27/24 02:51 Dose: 10 mg Diltiazem HCl (Diltiazem Inj 5 Mg/Ml Vial 5 Ml) 10 mg IV X1 ONE Stop: 03/27/24 03:42 Last Admin: 03/27/24 03:47 Dose: 10 mg Heparin Sodium (Porcine) (Heparin Sod Inj 5000 Unit/Ml Vial) 4,900 unit 60 unit/kg (4900 unit) IV X1 ONE; Protocol Stop: 03/27/24 04:27 Methylprednisolone Sodium Succinate (Methylprednisolone Sod Succ 62.5 Mg/Ml 2ml Vial) 125 mg IV X1 ONE Stop: 03/27/24 00:14 Last Admin: 03/27/24 00:34 Dose: 125 mg Assessment & Plan Plan Assessment and plan: Summary: Ms. Winston is a 63-year-old female with past medical history of COPD, atrial fibrillation, bipolar disorder, polysubstance use and migraine disorder who presented to [facility]24 with a chief complaint of altered mental status. Patient will be admitted to hospital for management of acute encephalopathy, COPD exacerbation and atrial fibrillation with RVR. #Acute encephalopathy Ddx: Multifactorial, Metabolic versus toxic, U-Tox positive for methamphetamine, pCO2 57 Patient presented from [facility], found by EMS was altered, patient currently arousable to pain, in ED U tox positive for methamphetamine and THC. ABG shows pCO2 57 Plan: -Ordered TSH, free T4 -Ordered ammonia -Will treat underlying COPD exacerbation, suspicion of meth intoxication, methamphetamine withdrawal -Ordered B12 and folate -Neurochecks every 4 hours #Acute hypoxic and hypercapnic respiratory failure #COPD exacerbation Patient was found by EMS, SpO2 85, significant wheezing noted, patient was given breathing treatment en route to hospital, in hospital on presentation patient was wheezing, ABG showed pH 7.26, pCO2 57, respiratory acidosis noted, bilateral wheezing noted. Patient was given DuoNeb breathing treatment x 1 and IV methylprednisone 125 x 1 in ED Plan: -Ipratropium every 4 hours -Levalbuterol every 4 hour -IV Solu-Medrol 40 mg every 8 hour -Azithromycin IV (03/27- -follow MRSA nasal screen -No evidence of pneumonia on chest x-ray, follow official read #Atrial fibrillation with RVR Patient's heart rate in 150s on presentation in ED, EKG significant for A-fib with RVR, patient was given IV diltiazem x 2 in ED Patient on diltiazem 240 p.o. every morning and Eliquis 5 mg p.o. twice daily Plan -IV diltiazem drip -IV heparin drip -Telemonitoring #Moderate vascular congestion on CXR Last echo from 2019 shows EF 55%, no bilateral lower extremity edema noted vascular congestion noted on chest x-ray, pending official read Plan: -Ordered echo #Methamphetamine dependence #THC dependence U-Tox positive for methamphetamine, THC Counseled patient against illicit drug use Referred to case management social worker #Bipolar disorder #Migraine disorder Pending med reconciliation DVT prophylaxis: Heparin drip GI prophylaxis: IV Protonix Diet: N.p.o. Lines: Peripheral IV Code status: Full code Case discussed with Attending Dr. Sánchez. Sylvia Motta PGY1 Disclaimer: This note was dictated by speech recognition. Minor errors in customer service sales associate may be present due to voice recognition software. Attending Provider Attestation/Addendum I have examined the patient, reviewed labs and imaging findings, discussed the case with the resident(s), and reviewed entered orders. I agree with the plan of care as outlined in this note, with these additional summaries/recommendations: Patient is a 63-year-old female with a medical history of COPD, primary hypertension, diabetes mellitus type 2, CVA, A-fib, bipolar disorder, and migraine headaches who presents to [facility] emergency department on 03/[facility] with chief complaint of shortness of breath. Per EMS, patient was saturating 82% on room air on arrival and went up to O2 sat 100% on 6 L. In the emergency room patient was found to have acute encephalopathy, COPD exacerbation, and atrial fibrillation with RVR and thus hospitalist team was consulted for continuation of care. # Acute Encephalopathy # Bipolar disorder Likely multifactorial with the biggest contributor being toxic from methamphetamine withdrawal/intoxication +/- COPD exacerbation +/- psychiatric component CT Head wo: Negative for acute hemorrhage, mass effect or midline shift U-Tox positive for methamphetamines and THC, ethyl alcohol level less than 3 Plan: We will order additional metabolic workup with ammonia, folate, vitamin B12, and TSH. NPO. Non-Pharm measures to prevent delirium. Will treat COPD exacerbation & monitor for improvement. procurement services manager referral for substance abuse. Unclear if patient is taking any maintenance therapy for bipolar at this time. # Acute hypoxic and hypercapnic respiratory failure # COPD exacerbation Unknown if the patient has previously required intubation or her typical course of exacerbations ABG on admission: pH 7.26, pCO2 57, pO2 71, bicarb 25 Supplemental O2: Goal O2 sat 88 to 92% Bronchodilator: Xopenex and ipratropium every 4 hours and as needed IV Solu-Medrol 40 mg every 8 hours Sputum culture not needed as per guidelines, given unreliable results and interpretations Antibiotics: Azithromycin x 5 days (03/27/24-) # Atrial fibrillation with rapid ventricular response Presented with longstanding persistent A-fib with rates into the 140s Differential diagnosis includes: Pulmonary, toxins, thyroid, drugs Does not appear to have a history of recent bleeding or other contraindication for anticoagulation at this time Currently hemodynamically stable [id number] score: 4 points and anticoagulation indicated Has bled score: 2 points indicating indicating 4.1% risk of bleeding Work-up: EKG as needed for chest pain, telemetry, TSH, free T4 and order echocardiogram Rate Control: Start diltiazem gtt Anticoagulation: Start heparin gtt with aPTT target of 60 to 80 seconds. Will transition to NOAC once tolerating oral intake # Diabetes mellitus type 2 05/06/22 A1C 7.1% Plan: Start insulin sliding scale with Accu-Cheks. Target blood sugar of 140- 180 while hospitalized. Will start diabetic diet when able. # Primary hypertension Plan: Pending medication reconciliation, resume as tolerated. #History of CVA #Hyperlipidemia Plan: Lipid panel ordered. Will start home statin therapy when able. Monitor for now. Dr. Sánchez
[2024-03-27] MEDS: AZITHROMYCIN INJ 500 MG in SODIUM CHLORIDE 0.9% 250 ML 250 ML 250 MG IV (05:09)
[2024-03-27] MEDS: MethylPREDNISolone SOD SUCC 62.5 MG/ML 2ML VIAL 40 MG IVP (05:09)
[2024-03-27] MEDS: HEPARIN SOD INJ 5000 UNIT/ML VIAL 4900 UNIT IV (05:10)
[2024-03-27 05:11] LABS: Basophils % (Auto) 0 % (0-2.5); Eosinophils # (Auto) 0.1 Thou/mm3 (0.0-0.5); Eosinophils % (Auto) 1 % (0-10); Hematocrit 34.6 % (36.0-46.0); Hemoglobin 10.6 g/dL (12.0-16.0); Immature Granulocytes % (Auto) 1 % (0-0); Immature Granulocytes Auto 0.05 Thou/mm3 (0.00-0.00); Lymphocytes # (Auto) 0.6 Thou/mm3 (1.0-4.8); Lymphocytes % (Auto) 6 % (10-50); Mean Corpuscular HGB Conc 30.6 g/dl (31.0-37.0); Mean Corpuscular Volume 88 fL (80-100); Monocytes # (Auto) 0.2 Thou/mm3 (0.0-0.8); Monocytes % (Auto) 2 % (0-12); Neutrophils # (Auto) 8.8 Thou/mm3 (1.8-7.7); Neutrophils % (Auto) 90 % (37-80); Nucleated Red Blood Cell % 0 /100 WBC (0); Platelet Count 298 Thou/mm3 (140-440); RDW Standard Deviation 47.3 fL (36.4-46.3); Red Blood Count 3.92 Miln/mm3 (4.00-5.20); White Blood Count 9.7 Thou/mm3 (3.6-11.0)
[2024-03-27 05:28] LABS: Ammonia 21 uMol/L (11-32)
[2024-03-27] MEDS: Heparin/D5w 25K 250 ML Ivpb 25,000 UNIT/250 ML BAG 9.798 UNIT IV (05:44)
[2024-03-27] MEDS: DILTIAZEM in D5W 125 MG 125 MG/125 ML BAG IV (05:46)
[2024-03-27 05:57] LABS: Alanine Aminotransferase 39 U/L (10-49); Albumin, Serum 3.8 gm/dL (3.4-4.8); Albumin/Globulin Ratio 1.3 (1.2-2.2); Alkaline Phosphatase 86 U/L (46-116); Anion Gap 6 (7-16); Aspartate Amino Transferase 22 U/L (0-34); BUN/Creatinine Ratio 34 Ratio (12-20); Bilirubin,Total 0.4 mg/dL (0.3-1.2); Blood Urea Nitrogen 24 mg/dL (9-23); Calcium 9.2 mg/dL (8.3-10.6); Calcium (Corrected) 9.4 mg/dL (8.5-10.1); Carbon Dioxide 25.9 mMol/L (20.0-31.0); Cardiac Risk Estimate 3.5 RATIO (3.7-5.6); Chloride 108 mMol/L (98-107); Cholesterol 124 mg/dL (132-200); Creatinine (Component) 0.7 mg/dL (0.6-1.3); Estimated Creatinine Clearance 80.7 mL/min (>60); Free T4 (Free Thyroxine) 1.46 ng/dL (0.89-1.76); Globulin 2.9 gm/dL (2.3-3.5); Glucose 195 mg/dL (74-106); HDL Cholesterol 35 mg/dL (40-60); LDL Cholesterol,Calculated 76 mg/dL (0-130); Osmolality,Calculated 288 (275-295); Potassium 4.1 mMol/L (3.4-5.1); Sodium 140 mMol/L (136-145); Thyroid Stimulating Hormone 0.55 uIU/mL (0.55-4.78); Total Protein 6.7 gm/dL (5.7-8.2); Triglycerides 63 mg/dL (30-150); eGFR > 60 See Note
[2024-03-27] MEDS: LEVALBUTEROL RT 0.63 MG/3 ML NEBU INH ×5 (07:10→22:39)
[2024-03-27] MEDS: IPRATROPIUM RT 0.5 MG/ 2.5 ML NEBU INH ×5 (07:10→22:39)
--- NOTE | 2024-03-27 07:39 | PC.NURSE ---
Pt resting w/eyes closed, denies any pain or discomfort. Currently GCS 13 upon assumption of care. pt remains on hep gtt and dilt gtt that matches MAR. Bose intact and patent. Del hopper remains in reach.
[2024-03-27 07:44] LABS: Folate 18.77 ng/mL (>5.38); Vitamin B12 431 pg/mL (211-911)
[2024-03-27 08:35] LABS: Glucose Estimated Average 134 mg/dL (80-131); Hemoglobin A1C 6.3 % Hgb (4.8-6.0)
[2024-03-27 09:57] LABS: Base Excess -3 (-3-3); HCO3 25 mEq/L (20-26); Inspired O2, VO2 Liters 4 L/min; O2 Saturation 96 % (91-98); PCO2 61 mmHg (32.0-48.0); PO2 86 mmHg (83-108); pH, Arterial 7.23 (7.35-7.45)
[2024-03-27 10:00] LABS: Allen Test Not Performed; Puncture Site Left Radial
[2024-03-27 11:58] LABS: Base Excess -3 (-3-3); HCO3 24 mEq/L (20-26); Inspired Oxygen, FIO2 70 %; O2 Saturation 101 % (91-98); PCO2 54 mmHg (32.0-48.0); PO2 286 mmHg (83-108); pH, Arterial 7.26 (7.35-7.45)
[2024-03-27 12:00] LABS: INR 1.1 (0.9-1.3); Partial Thromboplastin Time 29.8 Seconds (22.0-36.0); Prothrombin Time 11.9 Seconds (9.0-12.2)
[2024-03-27 12:07] LABS: Allen Test Not Performed; Puncture Site Left Radial
[2024-03-27] MEDS: INSULIN LISPRO (AdmeLOG) 1 UNIT/0.01 ML UNIT SC ×2 (12:27→18:59)
[2024-03-27] MEDS: PANTOPRAZOLE INJ 40 MG VIAL IVP (12:28)
[2024-03-27] MEDS: HEPARIN SOD INJ 5000 UNIT/ML VIAL 4000 UNIT IVP (13:14)
[2024-03-27] MEDS: ACETYLCYSTEINE RT SOL 10% 4 ML NEBU 3 ML INH ×3 (14:13→22:39)
--- NOTE | 2024-03-27 14:44 | PC.NURSE ---
Pt incont of large amount of stool. Per pt she does know when she needs to go however does not let staff know. Pt reminded she has her call hopper to call when she needs to go to [facility].
--- NOTE | 2024-03-27 15:01 | ESPR_ITS ---
<Statement entered by Jennifer Mckeon MD - 03/27/24 16:00> Patient seen and examined this morning at bedside, in the ER. She is arousable and responsive, orientated to name and place but lethargic; GCS of 14 [id number]. She sounds congested on auscultation with expiratory wheezing. She has 2-3+ b/l LE edema. Initial ABG showed respiratory acidosis, so started patient on BIPAP. Repeat ABG showed some improvement, so will continue BIPAP. Will give her IV antibiotics, steroids, breathing treatments and cough medicine. Regarding her afib with RVR, HR in the 110s now. Will continue dilt drip and get an echo for her. Jennifer Mckeon MD PGY-3 Documentation for date of: 03/27/24 Subjective Subjective Interval history: Patient seen and examined at bedside while in the ED. Mentation has improved, able to follow commands. No significant improvement in ABG since starting BiPAP. Continue the BiPAP and repeat ABG tomorrow due to respiratory acidosis. Continue DuoNeb, Azithromycin 500 mg daily, methylprednisone 40 mg IV TID for COPD exacerbation. Continue diltiazem drip for a fib and follow up on Echo. Remains in a fib, tachy 120-130. Plan to advance diet after bedside nurse swallow screen. Exam Vital Signs Temp Pulse Resp BP Pulse Ox O2 Del Method O2 Flow Rate 97.9 F 127 H 21 H 132/89 H 95 BiPAP 4 03/27/24 10:39 03/27/24 14:15 03/27/24 14:15 03/27/24 10:39 03/27/24 14:15 03/27/24 10:39 03/27/24 10:27 FiO2 70 03/27/24 14:15 Narrative Exam General: Unkempt elderly female, on BiPAP, cooperative HEENT: NCAT, No JVD noted. Pupils are equal and reactive to light bilaterally Cardiovascular:Irregular RR, Tachycardic Respiratory: Bilateral wheezing, on BiPAP Abdomen: Soft, nontender, not distended, normal bowel sounds. Skin: Warm to touch, dry, no rashes noted Musculoskeletal: No gross injuries. Able to move all 4 extremities. No pitting edema Neuro: Alert and oriented x3. No focal neuro deficits. Objective Labs 03/28/24 05:22 02/11/25 05:22 Labs: Laboratory Results - last 24 hr 03/27/24 03/27/24 03/27/24 00:23 00:44 00:57 WBC 9.6 RBC 4.34 Hgb 11.8 L Hct 38.2 MCV 88 MCH 27.2 MCHC 30.9 L RDW Std Deviation 46.5 H Plt Count 285 D Neut % (Auto) 54 Lymph % (Auto) 30 [place] % (Auto) 7 Eos % (Auto) 8 Baso % (Auto) 1 Neut # (Auto) 5.2 Lymph # (Auto) 2.9 [place] # (Auto) 0.7 Eos # (Auto) 0.8 H Baso # (Auto) 0.1 Immature Gran # (Auto) 0.03 H Absolute Nucleated RBC 0.00 Immature Gran % 0 Nucleated RBC % 0 PT 11.7 INR 1.1 APTT 21.5 L Puncture Site Left Radial ABG pH 7.26 L ABG pCO2 57 H ABG pO2 71 L ABG HCO3 25 ABG O2 Saturation 92 ABG Base Excess -2 Oxygen Liter Flow FiO2 21 Sodium 144 Potassium 4.1 Chloride 110 H Carbon Dioxide 27.1 Anion Gap 7 BUN 24 H Creatinine 0.9 Estim Creat Clear Calc 62.8 eGFR > 60 BUN/Creatinine Ratio 27 H Glucose [address] Glu mg/dL Hemoglobin A1c Calculated Osmolality 292 Calcium 10.0 Corrected Calcium 10.0 Magnesium 2.1 Total Bilirubin 0.4 AST 32 ALT 44 Alkaline Phosphatase 88 Ammonia Troponin I < 0.020 B-Natriuretic Peptide 213 H Total Protein 7.6 Albumin 4.2 Globulin 3.4 Albumin/Globulin Ratio 1.2 Triglycerides Cholesterol LDL Cholesterol, Calc HDL Cholesterol Cholesterol/HDL Ratio Vitamin B12 Folate TSH Free T4 Ur Collection Type Catheter Urine Color Yellow Urine Clarity Clear Urine pH 5.5 Ur Specific [place] 1.031 Urine Protein Trace Urine Glucose (UA) Negative Urine Ketones Negative Urine Blood Negative Urine Nitrite Negative Urine Bilirubin Negative Urine Urobilinogen (Auto) Negative Ur Leukocyte Esterase Negative Urine RBC 1 Urine WBC 2 Ur Squamous Epith Cells 2 Urine Bacteria None Ur Culture Indicated? Not Indicated Urine Opiates Screen Negative Urine Fentanyl Screen Negative Ur Barbiturates Screen Negative U Amphetamin/Meth Scrn Positive A U Benzodiazepines Scrn Negative U Cocaine Metab Screen Negative U Marijuana (THC) Screen Positive A Ethyl Alcohol < 3.0 03/27/24 03/27/24 03/27/24 04:53 09:48 11:30 WBC 9.7 RBC 3.92 L Hgb 10.6 L Hct 34.6 L MCV 88 MCH 27.0 MCHC 30.6 L RDW Std Deviation 47.3 H Plt Count 298 Neut % (Auto) 90 H Lymph % (Auto) 6 L [place] % (Auto) 2 Eos % (Auto) 1 Baso % (Auto) 0 Neut # (Auto) 8.8 H Lymph # (Auto) 0.6 L [place] # (Auto) 0.2 Eos # (Auto) 0.1 Baso # (Auto) 0.0 Immature Gran # (Auto) 0.05 H Absolute Nucleated RBC 0.00 Immature Gran % 1 H Nucleated RBC % 0 PT 11.9 INR 1.1 APTT 29.8 Puncture Site Left Radial ABG pH 7.23 L ABG pCO2 61 H ABG pO2 86 ABG HCO3 25 ABG O2 Saturation 96 ABG Base Excess -3 Oxygen Liter Flow 4 FiO2 Sodium 140 Potassium 4.1 Chloride 108 H Carbon Dioxide 25.9 Anion Gap 6 L BUN 24 H Creatinine 0.7 Estim Creat Clear Calc 80.7 eGFR > 60 BUN/Creatinine Ratio 34 H Glucose [address] Glu mg/dL 134 H Hemoglobin A1c 6.3 H Calculated Osmolality 288 Calcium 9.2 Corrected Calcium 9.4 Magnesium 2.0 Total Bilirubin 0.4 AST 22 ALT 39 Alkaline Phosphatase 86 Ammonia 21 Troponin I B-Natriuretic Peptide Total Protein 6.7 Albumin 3.8 Globulin 2.9 Albumin/Globulin Ratio 1.3 Triglycerides 63 Cholesterol 124 L LDL Cholesterol, Calc 76 HDL Cholesterol 35 L Cholesterol/HDL Ratio 3.5 L Vitamin B12 431 Folate 18.77 TSH 0.55 Free T4 1.46 Ur Collection Type Urine Color Urine Clarity Urine pH Ur Specific [place] Urine Protein Urine Glucose (UA) Urine Ketones Urine Blood Urine Nitrite Urine Bilirubin Urine Urobilinogen (Auto) Ur Leukocyte Esterase Urine RBC Urine WBC Ur Squamous Epith Cells Urine Bacteria Ur Culture Indicated? Urine Opiates Screen Urine Fentanyl Screen Ur Barbiturates Screen U Amphetamin/Meth Scrn U Benzodiazepines Scrn U Cocaine Metab Screen U Marijuana (THC) Screen Ethyl Alcohol 03/27/24 11:53 WBC RBC Hgb Hct MCV MCH MCHC RDW Std Deviation Plt Count Neut % (Auto) Lymph % (Auto) [place] % (Auto) Eos % (Auto) Baso % (Auto) Neut # (Auto) Lymph # (Auto) [place] # (Auto) Eos # (Auto) Baso # (Auto) Immature Gran # (Auto) Absolute Nucleated RBC Immature Gran % Nucleated RBC % PT INR APTT Puncture Site Left Radial ABG pH 7.26 L ABG pCO2 54 H ABG pO2 286 H D ABG HCO3 24 ABG O2 Saturation 101 H ABG Base Excess -3 Oxygen Liter Flow FiO2 70 Sodium Potassium Chloride Carbon Dioxide Anion Gap BUN Creatinine Estim Creat Clear Calc eGFR BUN/Creatinine Ratio Glucose Estimated Ave Glu mg/dL Hemoglobin A1c Calculated Osmolality Calcium Corrected Calcium Magnesium Total Bilirubin AST ALT Alkaline Phosphatase Ammonia Troponin I B-Natriuretic Peptide Total Protein Albumin Globulin Albumin/Globulin Ratio Triglycerides Cholesterol LDL Cholesterol, Calc HDL Cholesterol Cholesterol/HDL Ratio Vitamin B12 Folate TSH Free T4 Ur Collection Type Urine Color Urine Clarity Urine pH Ur Specific [place] Urine Protein Urine Glucose (UA) Urine Ketones Urine Blood Urine Nitrite Urine Bilirubin Urine Urobilinogen (Auto) Ur Leukocyte Esterase Urine RBC Urine WBC Ur Squamous Epith Cells Urine Bacteria Ur Culture Indicated? Urine Opiates Screen Urine Fentanyl Screen Ur Barbiturates Screen U Amphetamin/Meth Scrn U Benzodiazepines Scrn U Cocaine Metab Screen U Marijuana (THC) Screen Ethyl Alcohol ABG Interpretation ABG results: 03/27/24 03/27/24 03/27/24 00:57 09:48 11:53 ABG pH 7.26 L 7.23 L 7.26 L ABG pCO2 57 H 61 H 54 H ABG pO2 71 L 86 286 H D ABG HCO3 25 25 24 ABG O2 Saturation 92 96 101 H ABG Base Excess -2 -3 -3 Quality Measures Quality Measures none Assessment & Plan Assessment Current Active Medications: Generic Name Dose Route Start Last Admin Trade Name Freq PRN Reason Stop Dose Admin Acetaminophen 650 mg 03/27/24 04:20 Acetaminophen Supp 650 Mg Supp TX 04/26/24 04:19 Q6HR PRN [id number] Acetylcysteine 3 ml 03/27/24 15:00 03/27/24 14:13 Acetylcysteine Rt [place] 10% 4 Ml Nebu INH 04/26/24 14:59 3 ml Q4HRRT MANDA Administration Dextrose 25 ml 03/27/24 05:24 Dextrose 50%-Water Inj 50 Ml Syringe IV 04/26/24 05:23 Q15MIN PRN BG 50-70 responsive npo pt Dextrose 50 ml 03/27/24 05:24 Dextrose 50%-Water Inj 50 Ml Syringe IV 04/26/24 05:23 Q15MIN PRN BG <50 OR BG <70 & pt unresponsive Glucagon 1 mg 03/27/24 05:24 Glucagon Inj 1 Mg Vial IM Q15MIN PRN BG <70, and no IV access Guaifenesin 600 mg 03/27/24 11:14 Guaifenesin Er 600 Mg Tabcr PO 04/26/24 20:59 BID PRN cough Azithromycin 500 mg/ Sodium 250 mls @ 250 mls/hr 03/28/24 09:00 Chloride IV 04/04/24 08:59 QDAY MANDA Heparin Sodium/Dextrose 25,000 unit in 250 mls @ 9.798 mls/hr 03/27/24 04:30 03/27/24 12:29 Heparin In D5w Ivpb IV 04/10/24 04:29 16 units/kg/hr .Q24H MANDA 13.064 mls/hr Titration Protocol 12 UNITS/KG/HR Diltiazem HCl 125 mg in 125 mls @ 5 mls/hr 03/27/24 04:30 Diltiazem In D5w 125 Mg IV 04/26/24 04:29 .Q24H MANDA 5 MG/HR Diltiazem HCl 125 mg in 125 mls @ 5 mls/hr 03/27/24 04:45 03/27/24 05:46 Diltiazem In D5w 125 Mg IV 03/28/24 05:44 5 mg/hr .Q24H MANDA 5 mls/hr Administration 5 MG/HR Insulin Human Lispro 0 unit 03/27/24 07:30 03/27/24 13:16 Insulin Lispro (Admelog) 1 Unit/0.01 Ml Unit SC 04/26/24 07:29 Not Given AC MANDA Protocol Ipratropium [place] 0.5 mg 03/27/24 07:00 03/27/24 14:12 Ipratropium Rt 0.5 Mg/ 2.5 Ml Nebu INH 04/26/24 06:59 0.5 mg Q4HRRT MANDA Administration Levalbuterol HCl 0.63 mg 03/27/24 07:00 03/27/24 14:12 Levalbuterol Rt 0.63 Mg/3 Ml Nebu INH 04/26/24 06:59 0.63 mg Q4HRRT MANDA Administration Methylprednisolone Sodium Succinate 40 mg 03/27/24 14:00 03/27/24 13:16 Methylprednisolone Sod Succ 40 Mg Vial IVP 04/03/24 05:59 40 mg Q8HR MANDA Administration Ondansetron HCl 4 mg 03/27/24 04:20 Ondansetron Inj 2 Mg/Ml Inj 2 Ml IV 04/26/24 04:19 Q6H PRN NAUSEA OR VOMITING Protocol Pantoprazole Sodium 40 mg 03/27/24 09:00 03/27/24 12:28 Pantoprazole Inj 40 Mg Vial IVP 04/26/24 08:59 40 mg QDAY MANDA Administration Plan Sammie Winston is a 63-year-old female with past medical history of COPD, atrial fibrillation, bipolar disorder, polysubstance use and migraine disorder who presented to [facility] emergency department from [facility] on 03/27/2024 with a chief complaint of altered mental status. Patient will be admitted to hospital for management of acute encephalopathy, COPD exacerbation and atrial fibrillation with RVR. #Acute encephalopathy-resolved Ddx: Multifactorial, Metabolic versus toxic, U-Tox positive for methamphetamine, pCO2 57 Patient presented from [facility], found by EMS was altered. U tox positive for methamphetamine and THC. Initial ABG showed pCO2 57 TSH 0.55, free T4 1.46 (normal), ammonia 21 B12 431 (normal), Folate 18.77 (normal) Plan: -Continue to treat COPD exacerbation, suspicion of meth intoxication, methamphetamine withdrawal -Neurochecks every 4 hours -bedside nurse swallow screen #Acute hypoxic and hypercapnic respiratory failure #COPD exacerbation Patient was found by EMS, SpO2 85, significant wheezing noted, patient was given breathing treatment en route to hospital, in hospital on presentation patient was wheezing, ABG showed pH 7.26, pCO2 57, respiratory acidosis noted, bilateral wheezing noted. Patient was given DuoNeb breathing treatment x 1 and IV methylprednisone 125 x 1 in ED CXR negative for pnuemonia, mild HF Plan: -Ipratropium every 4 hours -Levalbuterol every 4 hour -IV Solu-Medrol 40 mg every 8 hour -Azithromycin 500 mg IV day for 5 days (03/27- -follow MRSA nasal screen -continue BiPAP -follow up with ABG #Atrial fibrillation with RVR Patient's heart rate in 150s on presentation in ED, EKG significant for A-fib with RVR, patient was given IV diltiazem x 2 in ED Patient on diltiazem 240 p.o. every morning and Eliquis 5 mg p.o. twice daily Chadsvasc score 2 indicating 2.2% stroke risk Has-bled score: 2 points indicating indicating 4.1% risk of bleeding Plan -continue IV diltiazem drip -IV heparin drip and transition to Eliquis 5 mg PO BID once patient passes swallow screen -Telemonitoring -continue to monitor electolytes keeping potassium >4.0 and Mg >2.0 #Moderate vascular congestion on CXR Last echo from 2019 shows EF 55%, no bilateral lower extremity edema noted, vascular congestion on chest x-ray suggestive of CHF. Plan: -follow up on echo -daily weights -monitor IOs #History of type 2 diabetes On admission initial glucose 139. Last A1c 7.1 on 04/2022. This admission 6.3. No medications noticed on chart. -Bedside blood glucose checks ACHS -Insulin lispro sliding scale -Carb consistent low diet after swallow screen -Consulted utility inspector -Diabetes education #Methamphetamine dependence #THC dependence U-Tox positive for methamphetamine, THC Counseled patient against illicit drug use Referred to sr. social media & mobile manager #Bipolar disorder #Migraine disorder Pending med reconciliation DVT prophylaxis: Heparin drip GI prophylaxis: IV Protonix Diet: N.p.o. Lines: Peripheral IV Code status: Full code The patient's management plan was discussed with my attending physician Dr. Brooks and senior Dr. Mckeon. Danielle Carias, PGY-1 Attending Provider Attestation/Addendum IVal, DO, attest that I was physically present for the [place]azar portions of the service and evaluated the patient with the resident and I reviewed and discussed the case with the resident and agree with the resident's findings and plans of care as documented above Patient seen and evaluated this AM. Patient quite somnolent and on oxymask at time of evaluation. ABG shows pH of 7.23/61/86, will place patient on BiPap and follow up with ABG. Patient endorses tobacco and drug use. She is noted to have scattered rhonchi and wheezing on exam. Patient states she does take eliquis outpatient for her afib. She cannot recall who her er medical technician is. Patient is homeless and is quite disheveled with poor hygiene. Somnolence likely due to Co2 retention. Will treat acute copd exacerbation with steroids and antibiotics. Continue to wean O2 as tolerated. Patient is on heparin drip since she is unable to take anything by mouth due to somnolence and BiPap dependence. 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 If present, will place patient on goal directed medical therapy.
[2024-03-27 16:39] LABS: Base Excess -1 (-3-3); HCO3 25 mEq/L (20-26); Inspired Oxygen, FIO2 70 %; O2 Saturation 100 % (91-98); PCO2 48 mmHg (32.0-48.0); PO2 118 mmHg (83-108); pH, Arterial 7.33 (7.35-7.45)
[2024-03-27 16:41] LABS: Allen Test Performed/OK; Puncture Site Right Radial
--- NOTE | 2024-03-27 18:29 | PC.NURSE ---
lab at bedside for ptt
[2024-03-27 19:50] LABS: Partial Thromboplastin Time 45.8 Seconds (22.0-36.0)
[2024-03-27] MEDS: HEPARIN SOD INJ 5000 UNIT/ML VIAL 2000 UNIT IV (20:17)
[2024-03-28] VITALS (18 sets, daily range): BP systolic 102–141; BP diastolic 65–98; PULSE 41–150; RESP 14–32; TEMP 35.9–36.7; O2SAT 92–100; BMI 36.6
[2024-03-28] MEDS: Heparin/D5w 25K 250 ML Ivpb 25,000 UNIT/250 ML BAG 14.696 UNIT IV (02:24)
[2024-03-28] MEDS: IPRATROPIUM RT 0.5 MG/ 2.5 ML NEBU INH ×4 (02:34→22:40)
[2024-03-28] MEDS: LEVALBUTEROL RT 0.63 MG/3 ML NEBU INH ×4 (02:34→22:40)
[2024-03-28] MEDS: ACETYLCYSTEINE RT SOL 10% 4 ML NEBU 3 ML INH ×4 (02:34→22:40)
[2024-03-28 02:52] LABS: Partial Thromboplastin Time 58.6 Seconds (22.0-36.0)
[2024-03-28 05:48] LABS: Basophils % (Auto) 0 % (0-2.5); Eosinophils % (Auto) 0 % (0-10); Hematocrit 33.8 % (36.0-46.0); Hemoglobin 10.7 g/dL (12.0-16.0); Immature Granulocytes % (Auto) 1 % (0-0); Immature Granulocytes Auto 0.07 Thou/mm3 (0.00-0.00); Lymphocytes # (Auto) 0.9 Thou/mm3 (1.0-4.8); Lymphocytes % (Auto) 7 % (10-50); Mean Corpuscular HGB Conc 31.7 g/dl (31.0-37.0); Mean Corpuscular Hemoglobin 27.4 pg (25.0-35.0); Mean Corpuscular Volume 87 fL (80-100); Monocytes # (Auto) 0.2 Thou/mm3 (0.0-0.8); Monocytes % (Auto) 2 % (0-12); Neutrophils # (Auto) 11.4 Thou/mm3 (1.8-7.7); Neutrophils % (Auto) 91 % (37-80); Nucleated Red Blood Cell % 0 /100 WBC (0); Platelet Count 281 Thou/mm3 (140-440); White Blood Count 12.6 Thou/mm3 (3.6-11.0)
[2024-03-28 06:11] LABS: Alanine Aminotransferase 29 U/L (10-49); Albumin, Serum 3.5 gm/dL (3.4-4.8); Albumin/Globulin Ratio 1.3 (1.2-2.2); Alkaline Phosphatase 74 U/L (46-116); Anion Gap 8 (7-16); Aspartate Amino Transferase 13 U/L (0-34); BUN/Creatinine Ratio 30 Ratio (12-20); Bilirubin,Total 0.5 mg/dL (0.3-1.2); Blood Urea Nitrogen 21 mg/dL (9-23); Calcium 9.2 mg/dL (8.3-10.6); Calcium (Corrected) 9.6 mg/dL (8.5-10.1); Carbon Dioxide 23.7 mMol/L (20.0-31.0); Chloride 108 mMol/L (98-107); Creatinine (Component) 0.7 mg/dL (0.6-1.3); Globulin 2.6 gm/dL (2.3-3.5); Glucose 222 mg/dL (74-106); Magnesium 1.9 mg/dL (1.6-2.6); Osmolality,Calculated 289 (275-295); Phosphorous 3.5 mg/dL (2.4-5.1); Potassium 4.5 mMol/L (3.4-5.1); Sodium 140 mMol/L (136-145); Total Protein 6.1 gm/dL (5.7-8.2); eGFR > 60 See Note
[2024-03-28] MEDS: DILTIAZEM INJ 125 MG in DEXTROSE 5%-WATER 100 ML IV (07:48)
--- NOTE | 2024-03-28 09:31 | ESPR_ITS ---
<Statement entered by Jennifer Mckeon MD - 03/28/24 12:38> I discussed with and supervised my co-resident involved in the care of this patient. I agree with the assessment and plan as documented above. Patient seen and examined at bedside. On BIPAP, patient is sitting upright in bed awake, alert, following commands. HR improved to the 120s on the dilt drip. Echo showed EF of 45%. For her acute hypercapnic respiratory failure, improving - will try off BIPAP. For her afib with RVR, will transition to oral diltiazem and transition from heparin drip to eliquis. For her COPD, will de-escalate her steroids and continue IV antibiotics. Will also adjust her insulin for her hyperglycemia. Jennifer Mckeon MD PGY-3 Documentation for date of: 03/28/24 Subjective Subjective Interval history: Patient was seen at bedside. AMS has resolved. She was still on BiPAP. Plan to transition to oxymask and do bedside swallow screen. Start patient on 20 mg Lasix daily as echo results showed mild systolic dysfunction with EF 45-50%. LE edema has improved since yesterday. Transition patient to PO diltiazem 240 mg daily and restart Eliquis 5 mg BID for Afib. She remains in Afib with HR 110-120s. Taper prednisone to 40 mg BID for COPD exacerbation. Exam Vital Signs Temp Pulse Resp BP Pulse Ox O2 Del Method O2 Flow Rate 97.7 F 121 H 20 108/89 H 92 L BiPAP 4 03/28/24 08:00 03/28/24 08:00 03/28/24 08:00 03/28/24 08:00 03/28/24 08:00 03/28/24 08:00 03/28/24 08:00 FiO2 55 03/28/24 08:00 Narrative Exam General: Unkempt elderly female, on BiPAP, cooperative HEENT: NCAT, No JVD noted. Pupils are equal and reactive to light bilaterally Cardiovascular:Irregular RR, Tachycardic Respiratory: Bilateral wheezing, on BiPAP Abdomen: Soft, nontender, not distended, normal bowel sounds. Skin: Warm to touch, dry, no rashes noted Musculoskeletal: No gross injuries. Able to move all 4 extremities. No pitting edema Neuro: Alert and oriented x3. No focal neuro deficits. Objective Labs 03/28/24 05:22 03/28/24 05:22 Labs: Laboratory Results - last 24 hr 03/27/24 03/27/24 03/27/24 09:48 11:30 11:53 WBC RBC Hgb Hct MCV MCH MCHC RDW Std Deviation Plt Count Neut % (Auto) Lymph % (Auto) [place] % (Auto) Eos % (Auto) Baso % (Auto) Neut # (Auto) Lymph # (Auto) [place] # (Auto) Eos # (Auto) Baso # (Auto) Immature Gran # (Auto) Absolute Nucleated RBC Immature Gran % Nucleated RBC % PT 11.9 INR 1.1 APTT 29.8 Puncture Site Left Radial Left Radial ABG pH 7.23 L 7.26 L ABG pCO2 61 H 54 H ABG pO2 86 286 H D ABG HCO3 25 24 ABG O2 Saturation 96 101 H ABG Base Excess -3 -3 Oxygen Liter Flow 4 FiO2 70 Sodium Potassium Chloride Carbon Dioxide Anion Gap BUN Creatinine Estim Creat Clear Calc eGFR BUN/Creatinine Ratio Glucose Calculated Osmolality Calcium Corrected Calcium Phosphorus Magnesium Total Bilirubin AST ALT Alkaline Phosphatase Total Protein Albumin Globulin Albumin/Globulin Ratio 03/27/24 03/27/24 03/28/24 16:34 18:30 02:04 WBC RBC Hgb Hct MCV MCH MCHC RDW Std Deviation Plt Count Neut % (Auto) Lymph % (Auto) [place] % (Auto) Eos % (Auto) Baso % (Auto) Neut # (Auto) Lymph # (Auto) [place] # (Auto) Eos # (Auto) Baso # (Auto) Immature Gran # (Auto) Absolute Nucleated RBC Immature Gran % Nucleated RBC % PT INR APTT 45.8 H D 58.6 H D Puncture Site Right Radial ABG pH 7.33 L ABG pCO2 48 ABG pO2 118 H D ABG HCO3 25 ABG O2 Saturation 100 H ABG Base Excess -1 Oxygen Liter Flow FiO2 70 Sodium Potassium Chloride Carbon Dioxide Anion Gap BUN Creatinine Estim Creat Clear Calc eGFR BUN/Creatinine Ratio Glucose Calculated Osmolality Calcium Corrected Calcium Phosphorus Magnesium Total Bilirubin AST ALT Alkaline Phosphatase Total Protein Albumin Globulin Albumin/Globulin Ratio 03/28/24 05:22 WBC 12.6 H RBC 3.90 L Hgb 10.7 L Hct 33.8 L MCV 87 MCH 27.4 MCHC 31.7 RDW Std Deviation 46.0 Plt Count 281 Neut % (Auto) 91 H Lymph % (Auto) 7 L [place] % (Auto) 2 Eos % (Auto) 0 Baso % (Auto) 0 Neut # (Auto) 11.4 H Lymph # (Auto) 0.9 L [place] # (Auto) 0.2 Eos # (Auto) 0.0 Baso # (Auto) 0.0 Immature Gran # (Auto) 0.07 H Absolute Nucleated RBC 0.00 Immature Gran % 1 H Nucleated RBC % 0 PT INR APTT Puncture Site ABG pH ABG pCO2 ABG pO2 ABG HCO3 ABG O2 Saturation ABG Base Excess Oxygen Liter Flow FiO2 Sodium 140 Potassium 4.5 Chloride 108 H Carbon Dioxide 23.7 Anion Gap 8 BUN 21 Creatinine 0.7 Estim Creat Clear Calc 84.0 eGFR > 60 BUN/Creatinine Ratio 30 H Glucose 222 H Calculated Osmolality 289 Calcium 9.2 Corrected Calcium 9.6 Phosphorus 3.5 Magnesium 1.9 Total Bilirubin 0.5 AST 13 ALT 29 Alkaline Phosphatase 74 Total Protein 6.1 Albumin 3.5 Globulin 2.6 Albumin/Globulin Ratio 1.3 ABG Interpretation ABG results: 03/27/24 03/27/24 03/27/24 00:57 09:48 11:53 ABG pH 7.26 L 7.23 L 7.26 L ABG pCO2 57 H 61 H 54 H ABG pO2 71 L 86 286 H D ABG HCO3 25 25 24 ABG O2 Saturation 92 96 101 H ABG Base Excess -2 -3 -3 03/27/24 16:34 ABG pH 7.33 L ABG pCO2 48 ABG pO2 118 H D ABG HCO3 25 ABG O2 Saturation 100 H ABG Base Excess -1 Quality Measures Quality Measures none Assessment & Plan Assessment Current Active Medications: Generic Name Dose Route Start Last Admin Trade Name Freq PRN Reason Stop Dose Admin Acetaminophen 650 mg 03/27/24 04:20 Acetaminophen Supp 650 Mg Supp [place] 04/26/24 04:19 Q6HR PRN [id number] Acetylcysteine 3 ml 03/27/24 15:00 03/28/24 07:03 Acetylcysteine Rt Amada 10% 4 Ml Nebu INH 04/26/24 14:59 3 ml Q4HRRT MANDA Administration Dextrose 25 ml 03/27/24 05:24 Dextrose 50%-Water Inj 50 Ml Syringe IV 04/26/24 05:23 Q15MIN PRN BG 50-70 responsive npo pt Dextrose 50 ml 03/27/24 05:24 Dextrose 50%-Water Inj 50 Ml Syringe IV 04/26/24 05:23 Q15MIN PRN BG <50 OR BG <70 & pt unresponsive Glucagon 1 mg 03/27/24 05:24 Glucagon Inj 1 Mg Vial IM Q15MIN PRN BG <70, and no IV access Guaifenesin 600 mg 03/27/24 11:14 Guaifenesin Er 600 Mg Tabcr PO 04/26/24 20:59 BID PRN cough Azithromycin 500 mg/ Sodium 250 mls @ 250 mls/hr 03/28/24 09:00 Chloride IV 04/04/24 08:59 QDAY MANDA Heparin Sodium/Dextrose 25,000 unit in 250 mls @ 9.798 mls/hr 03/27/24 04:30 03/28/24 02:24 Heparin In D5w Ivpb IV 04/10/24 04:29 18 units/kg/hr .Q24H MANDA 14.696 mls/hr Administration Protocol 12 UNITS/KG/HR Diltiazem HCl 125 mg/ Dextrose 125 mls @ 5 mls/hr 03/28/24 07:00 03/28/24 07:48 IV 04/27/24 05:43 5 mg/hr .Q24H MANDA 5 mls/hr Administration 5 MG/HR Insulin Human Lispro 0 unit 03/27/24 07:30 03/28/24 07:57 Insulin Lispro (Admelog) 1 Unit/0.01 Ml Unit SC 04/26/24 07:29 Not Given AC [facility] Protocol Ipratropium [place] 0.5 mg 03/27/24 07:00 03/28/24 07:03 Ipratropium Rt 0.5 Mg/ 2.5 Ml Nebu INH 04/26/24 06:59 0.5 mg Q4HRRT MANDA Administration Levalbuterol HCl 0.63 mg 03/27/24 07:00 03/28/24 07:03 Levalbuterol Rt 0.63 Mg/3 Ml Nebu INH 04/26/24 06:59 0.63 mg Q4HRRT MANDA Administration Methylprednisolone Sodium Succinate 40 mg 03/27/24 14:00 03/28/24 05:03 Methylprednisolone Sod Succ 40 Mg Vial IVP 04/03/24 05:59 40 mg Q8HR MANDA Administration Ondansetron HCl 4 mg 03/27/24 04:20 Ondansetron Inj 2 Mg/Ml Inj 2 Ml IV 04/26/24 04:19 Q6H PRN NAUSEA OR VOMITING Protocol Pantoprazole Sodium 40 mg 03/27/24 09:00 03/27/24 12:28 Pantoprazole Inj 40 Mg Vial IVP 04/26/24 08:59 40 mg QDAY MANDA Administration Plan Sammie Winston is a 63-year-old female with past medical history of COPD, atrial fibrillation, bipolar disorder, polysubstance use and migraine disorder who presented to [facility] emergency department from [facility] on 03/27/2024 with a chief complaint of altered mental status. Patient will be admitted to hospital for management of acute encephalopathy, COPD exacerbation and atrial fibrillation with RVR. #Acute encephalopathy-resolved Ddx: Multifactorial, Metabolic versus toxic, U-Tox positive for methamphetamine, pCO2 57 Patient presented from [facility], found by EMS was altered. U tox positive for methamphetamine and THC. Initial ABG showed pCO2 57 TSH 0.55, free T4 1.46 (normal), ammonia 21 B12 431 (normal), Folate 18.77 (normal) Plan: -Continue to treat COPD exacerbation, suspicion of meth intoxication, methamphetamine withdrawal -Neurochecks every 4 hours -bedside nurse swallow screen--passed #Acute hypoxic and hypercapnic respiratory failure 2/2 #COPD exacerbation Patient was found by EMS, SpO2 85, significant wheezing noted, patient was given breathing treatment en route to hospital, in hospital on presentation patient was wheezing, ABG showed pH 7.26, pCO2 57, respiratory acidosis noted, bilateral wheezing noted. Patient was given DuoNeb breathing treatment x 1 and IV methylprednisone 125 x 1 in ED CXR negative for pnuemonia, mild HF Plan: -Ipratropium every 4 hours -Levalbuterol every 4 hour -taper IV Solu-Medrol 40 mg to BID -Azithromycin 500 mg IV day for 5 days (03/27- -follow MRSA nasal screen -transition to oxymask from BiPAP -monitor O2 sats and titrate #Atrial fibrillation with RVR Patient's heart rate in 150s on presentation in ED, EKG significant for A-fib with RVR, patient was given IV diltiazem x 2 in ED Patient on diltiazem 240 p.o. every morning and Eliquis 5 mg p.o. twice daily Chadsvasc score 2 indicating 2.2% stroke risk Has-bled score: 2 points indicating indicating 4.1% risk of bleeding Plan -transition from IV diltiazem drip to home dose 240 mg daily PO -transition IV heparin drip to Eliquis 5 mg PO BID -Telemonitoring -continue to monitor electolytes keeping potassium >4.0 and Mg >2.0 #HFmEF, EF 45-50% Last echo from 2019 shows EF 55%, no bilateral lower extremity edema noted, vascular congestion on chest x-ray suggestive of CHF. Echo on 03/27/24 showed mild systolic dysfunction with EF 45-50%. Plan: -start Lasix 20 mg daily -daily weights -monitor IOs #History of type 2 diabetes On admission initial glucose 139. Last A1c 7.1 on 04/2022. This admission 6.3. No medications noticed on chart. -Bedside blood glucose checks ACHS -Insulin lispro sliding scale -Carb consistent low diet after swallow screen -Consulted sheep and wheat farmer -Diabetes education #Methamphetamine dependence #THC dependence U-Tox positive for methamphetamine, THC Counseled patient against illicit drug use Referred to social science manager #Bipolar disorder #Migraine disorder Pending med reconciliation DVT prophylaxis: Eliquis 5 mg BID GI prophylaxis: IV Protonix Diet: CHO diet Lines: Peripheral IV Code status: Full code The patient's management plan was discussed with my attending physician Dr. Brooks and senior Dr. Mckeon. Danielle Carias, PGY-1 Attending Provider Attestation/Addendum Val Herrera, DO, attest that I was physically present for the salazar portions of the service and evaluated the patient with the resident and I reviewed and discussed the case with the resident and agree with the resident's findings and plans of care as documented above Patient seen and evaluated this AM. She states that she is feeling improved. Patient much more alert and interactive today. Breath sounds improved. Continue with current management and transition BiPap to oxymask. Will DC cardizem drip and switch to home PO cardizem. Will titrate IV steroids and decrease intervals of breathing treatments since respiratory status is improved. Echocardiogram consistent with HFmEF. Will start on low dose IV lasix as patient continues to have mild b/l LE pitting edema
[2024-03-28 09:46] LABS: Partial Thromboplastin Time 51.9 Seconds (22.0-36.0)
[2024-03-28] MEDS: AZITHROMYCIN INJ 500 MG in SODIUM CHLORIDE 0.9% 250 ML 250 ML 250 MG IV (10:13)
[2024-03-28] MEDS: PANTOPRAZOLE INJ 40 MG VIAL IVP (10:13)
[2024-03-28] MEDS: INSULIN LISPRO (AdmeLOG) 1 UNIT/0.01 ML UNIT SC ×2 (11:47→17:43)
[2024-03-28] MEDS: FUROSEMIDE INJ 10 MG/ML VIAL 2 ML 20 MG IVP (12:47)
--- NOTE | 2024-03-28 14:32 | PC.SS ---
Patient Sammie Winston is a 63 Year old female admitted for Acute Encephalopathy. SS met with patient and patient's at bedside. Patient reports she lives at home with her , Haroldo Uriostegui who she reports is her Surrogate decision maker [phone]. Patient reports she utilizes a Cane to assist with ambulation, patient also has a wheelchair and walker and utilizes it as needed. Patient reports per PCP is Wilbert Gallego. Patient's choice of pharmacy is [facility]. Patient does not utilize any home 02. At time of discharge patient will return back home. Patient's will provide transportation. Discharge Plan: Home Next of Kin: , Haroldo Uriostegui
[2024-03-28] MEDS: ACETAMINOPHEN 325 MG TABLET 650 MG PO (15:07)
[2024-03-28] MEDS: DILTIAZEM INJ 5 MG/ML VIAL 5 ML 10 MG IV ×2 (16:55→22:28)
[2024-03-28] MEDS: APIXABAN 2.5 MG TABLET 5 MG PO (20:04)
--- NOTE | 2024-03-28 21:55 | PC.NURSE ---
Notified Dr. Motta of patiets hr sustaining 135-145. Dr. Motta came to bedside to see lesnt and will order po cardizem.
[2024-03-28] MEDS: DILTIAZEM 30 MG TABLET PO (22:27)
[2024-03-29] VITALS (11 sets, daily range): BP systolic 113–153; BP diastolic 80–100; PULSE 101–155; RESP 16–26; TEMP 36.1–36.7; O2SAT 95–100
[2024-03-29 06:04] LABS: Basophils % (Auto) 0 % (0-2.5); Eosinophils % (Auto) 0 % (0-10); Hematocrit 35.3 % (36.0-46.0); Immature Granulocytes % (Auto) 1 % (0-0); Immature Granulocytes Auto 0.11 Thou/mm3 (0.00-0.00); Lymphocytes # (Auto) 0.8 Thou/mm3 (1.0-4.8); Lymphocytes % (Auto) 5 % (10-50); Mean Corpuscular HGB Conc 31.2 g/dl (31.0-37.0); Mean Corpuscular Hemoglobin 26.8 pg (25.0-35.0); Mean Corpuscular Volume 86 fL (80-100); Monocytes # (Auto) 0.3 Thou/mm3 (0.0-0.8); Monocytes % (Auto) 2 % (0-12); Neutrophils # (Auto) 13.4 Thou/mm3 (1.8-7.7); Neutrophils % (Auto) 92 % (37-80); Nucleated Red Blood Cell % 0 /100 WBC (0); Platelet Count 322 Thou/mm3 (140-440); RDW Standard Deviation 46.8 fL (36.4-46.3); Red Blood Count 4.11 Miln/mm3 (4.00-5.20); White Blood Count 14.6 Thou/mm3 (3.6-11.0)
[2024-03-29] MEDS: DILTIAZEM CD 120 MG CAPCR 240 MG PO (06:13)
--- NOTE | 2024-03-29 06:19 | PC.NURSE ---
notified Dr. Motta of patients hr going up as high as 165, new order to give her 9am dose early.
[2024-03-29 06:21] LABS: INR 1.1 (0.9-1.3); Partial Thromboplastin Time 24.1 Seconds (22.0-36.0); Prothrombin Time 12.1 Seconds (9.0-12.2)
[2024-03-29 06:42] LABS: Alanine Aminotransferase 26 U/L (10-49); Albumin, Serum 3.7 gm/dL (3.4-4.8); Albumin/Globulin Ratio 1.5 (1.2-2.2); Alkaline Phosphatase 73 U/L (46-116); Anion Gap 3 (7-16); Aspartate Amino Transferase < 8 U/L (0-34); BUN/Creatinine Ratio 40 Ratio (12-20); Bilirubin,Total 0.4 mg/dL (0.3-1.2); Blood Urea Nitrogen 32 mg/dL (9-23); Calcium 9.3 mg/dL (8.3-10.6); Calcium (Corrected) 9.5 mg/dL (8.5-10.1); Carbon Dioxide 27.2 mMol/L (20.0-31.0); Chloride 108 mMol/L (98-107); Creatinine (Component) 0.8 mg/dL (0.6-1.3); Estimated Creatinine Clearance 75.1 mL/min (>60); Globulin 2.5 gm/dL (2.3-3.5); Glucose 234 mg/dL (74-106); Osmolality,Calculated 290 (275-295); Phosphorous 3.4 mg/dL (2.4-5.1); Potassium 4.6 mMol/L (3.4-5.1); Sodium 138 mMol/L (136-145); Total Protein 6.2 gm/dL (5.7-8.2); eGFR > 60 See Note
[2024-03-29] MEDS: ACETYLCYSTEINE RT SOL 10% 4 ML NEBU 3 ML INH ×3 (06:46→22:40)
[2024-03-29] MEDS: IPRATROPIUM RT 0.5 MG/ 2.5 ML NEBU INH ×3 (06:46→22:40)
[2024-03-29] MEDS: LEVALBUTEROL RT 0.63 MG/3 ML NEBU INH ×3 (06:46→22:40)
[2024-03-29] MEDS: INSULIN LISPRO (AdmeLOG) 1 UNIT/0.01 ML UNIT SC ×3 (07:30→16:30)
[2024-03-29] MEDS: APIXABAN 2.5 MG TABLET 5 MG PO ×2 (08:58→20:48)
[2024-03-29] MEDS: FUROSEMIDE INJ 10 MG/ML VIAL 2 ML 20 MG IVP (08:58)
[2024-03-29] MEDS: PANTOPRAZOLE INJ 40 MG VIAL IVP (08:59)
[2024-03-29] MEDS: AZITHROMYCIN INJ 500 MG in SODIUM CHLORIDE 0.9% 250 ML 250 ML 250 MG IV (09:01)
--- NOTE | 2024-03-29 09:40 | ESPR_ITS ---
<Statement entered by Jennifer Mckeon MD - 03/29/24 16:09> I discussed with and supervised my co-resident involved in the care of this patient. I agree with the assessment and plan as documented above. Overnight, patient transitioned to oral diltiazem. Remains in afib with RVR overnight as high in the 150s, had extra push of diltiazem. Patient seen at bedside. She is awake, alert, on 3L Oxymask. Bedside rate was 90s-130s. Labs significant for hyperglycemia, will adjust insulin accordingly. Rate at bedside in 100s-120s. Will consult trade mark attorney Dr. Jimenez for his recommendations regarding patient's persistent afib with RVR and HFmrEF of 45%. Jennifer Mckeon MD PGY-3 Documentation for date of: 03/29/24 Subjective Subjective Interval history: Patient seen and examined at bedside. AOx3. Overnight, she remained tachy 130- 140s. Was given diltiazem 10mg push and 240 mg PO x1 later. Telemetry was reviwed. She remaines in a fib with rate 120-130. Will consult patient's trade mark attorney Dr. Jimenez for recs. Oxygen requirements are improving. Today on 3L oxymask saturating at 97%. Patient denies any chest pain, SOB, or palpitations. Will continue IV Lasix 20 mg daily in setting of HFrEF. Ronchi still appreciated on exam, no LE edema. Total output has been ~1.7L. Continue to taper steroids to 40 mg daily. Tritrate O2. Leukocytosis worsened to 14, likely reactive to steroids. All other labs stable. Exam Vital Signs Temp Pulse Resp BP Pulse Ox O2 Del Method O2 Flow Rate 98.0 F 131 H 16 115/90 H 100 Oxy Mask 4 03/29/24 04:00 03/29/24 08:58 03/29/24 06:47 03/29/24 08:58 03/29/24 06:47 03/29/24 04:00 03/29/24 06:47 FiO2 55 03/28/24 15:48 Narrative Exam General: Unkempt elderly female, on oxymask, cooperative HEENT: NCAT, No JVD noted. Pupils are equal and reactive to light bilaterally Cardiovascular:Irregular RR, Tachycardic Respiratory: Bilateral rhonchi, on 3L oxymask Abdomen: Soft, nontender, not distended, normal bowel sounds. : aburto in place, Skin: Warm to touch, dry, no rashes noted Musculoskeletal: No gross injuries. Able to move all 4 extremities. No pitting edema Neuro: Alert and oriented x3. No focal neuro deficits. Objective Labs 03/30/24 04:22 03/30/24 04:22 Labs: Laboratory Results - last 24 hr 03/28/24 03/29/24 08:50 05:37 WBC 14.6 H RBC 4.11 Hgb 11.0 L Hct 35.3 L MCV 86 MCH 26.8 MCHC 31.2 RDW Std Deviation 46.8 H Plt Count 322 D Neut % (Auto) 92 H Lymph % (Auto) 5 L [place] % (Auto) 2 Eos % (Auto) 0 Baso % (Auto) 0 Neut # (Auto) 13.4 H Lymph # (Auto) 0.8 L [place] # (Auto) 0.3 Eos # (Auto) 0.0 Baso # (Auto) 0.0 Immature Gran # (Auto) 0.11 H Absolute Nucleated RBC 0.00 Immature Gran % 1 H Nucleated RBC % 0 PT 12.1 INR 1.1 APTT 51.9 H 24.1 D Sodium 138 Potassium 4.6 Chloride 108 H Carbon Dioxide 27.2 Anion Gap 3 L BUN 32 H Creatinine 0.8 Estim Creat Clear Calc 75.1 eGFR > 60 BUN/Creatinine Ratio 40 H Glucose 234 H Calculated Osmolality 290 Calcium 9.3 Corrected Calcium 9.5 Phosphorus 3.4 Magnesium 2.0 Total Bilirubin 0.4 AST < 8 ALT 26 Alkaline Phosphatase 73 Total Protein 6.2 Albumin 3.7 Globulin 2.5 Albumin/Globulin Ratio 1.5 ABG Interpretation ABG results: 03/27/24 03/27/24 03/27/24 00:57 09:48 11:53 ABG pH 7.26 L 7.23 L 7.26 L ABG pCO2 57 H 61 H 54 H ABG pO2 71 L 86 286 H D ABG HCO3 25 25 24 ABG O2 Saturation 92 96 101 H ABG Base Excess -2 -3 -3 03/27/24 16:34 ABG pH 7.33 L ABG pCO2 48 ABG pO2 118 H D ABG HCO3 25 ABG O2 Saturation 100 H ABG Base Excess -1 Quality Measures Quality Measures none Assessment & Plan Assessment Current Active Medications: Generic Name Dose Route Start Last Admin Trade Name Freq PRN Reason Stop Dose Admin Acetaminophen 650 mg 03/28/24 15:00 03/28/24 15:07 Acetaminophen 325 Mg Tablet PO 04/27/24 14:59 650 mg Q6HR PRN Administration Fever >100.3 or pain Acetylcysteine 3 ml 03/27/24 15:00 03/29/24 06:46 Acetylcysteine Rt [place] 10% 4 Ml Nebu INH 04/26/24 14:59 3 ml Q4HRRT MANDA Administration Apixaban 5 mg 03/28/24 21:00 03/29/24 08:58 Apixaban 2.5 Mg Tablet PO 04/27/24 20:59 5 mg BID MANDA Administration Dextrose 25 ml 03/27/24 05:24 Dextrose 50%-Water Inj 50 Ml Syringe IV 04/26/24 05:23 Q15MIN PRN BG 50-70 responsive npo pt Dextrose 50 ml 03/27/24 05:24 Dextrose 50%-Water Inj 50 Ml Syringe IV 04/26/24 05:23 Q15MIN PRN BG <50 OR BG <70 & pt unresponsive Diltiazem HCl 240 mg 03/29/24 09:00 03/29/24 05:50 Diltiazem Cd 120 Mg Capcr PO 04/28/24 08:59 Not Given DAILY MANDA Furosemide 20 mg 03/28/24 12:00 03/29/24 08:58 Furosemide Inj 10 Mg/Ml Vial 2 Ml IVP 04/27/24 11:59 20 mg QDAY MANDA Administration Glucagon 1 mg 03/27/24 05:24 Glucagon Inj 1 Mg Vial IM Q15MIN PRN BG <70, and no IV access Guaifenesin 600 mg 03/27/24 11:14 Guaifenesin Er 600 Mg Tabcr PO 04/26/24 20:59 BID PRN cough Azithromycin 500 mg/ Sodium 250 mls @ 250 mls/hr 03/28/24 09:00 03/29/24 09:01 Chloride IV 04/04/24 08:59 250 mls/hr QDAY MANDA Administration Insulin Human Lispro 0 unit 03/27/24 07:30 03/29/24 07:30 Insulin Lispro (Admelog) 1 Unit/0.01 Ml Unit SC 04/26/24 07:29 2 unit AC MANDA Administration Protocol Ipratropium [place] 0.5 mg 03/28/24 23:00 03/29/24 06:46 Ipratropium Rt 0.5 Mg/ 2.5 Ml Nebu INH 04/27/24 22:59 0.5 mg Q8HRRT MANDA Administration Levalbuterol HCl 0.63 mg 03/28/24 23:00 03/29/24 06:46 Levalbuterol Rt 0.63 Mg/3 Ml Nebu INH 04/27/24 22:59 0.63 mg Q8HRRT MANDA Administration Methylprednisolone Sodium Succinate 40 mg 03/28/24 21:00 03/29/24 08:58 Methylprednisolone Sod Succ 40 Mg Vial IVP 04/04/24 20:59 40 mg BID MANDA Administration Ondansetron HCl 4 mg 03/27/24 04:20 Ondansetron Inj 2 Mg/Ml Inj 2 Ml IV 04/26/24 04:19 Q6H PRN NAUSEA OR VOMITING Protocol Pantoprazole Sodium 40 mg 03/27/24 09:00 03/29/24 08:59 Pantoprazole Inj 40 Mg Vial IVP 04/26/24 08:59 40 mg QDAY MANDA Administration Plan Sammie Winston is a 63-year-old female with past medical history of COPD, atrial fibrillation, bipolar disorder, polysubstance use and migraine disorder who presented to [facility] emergency department from [facility] on 03/27/2024 with a chief complaint of altered mental status. Patient will be admitted to hospital for management of acute encephalopathy, COPD exacerbation and atrial fibrillation with RVR. #Acute encephalopathy-resolved Ddx: Multifactorial, Metabolic versus toxic, U-Tox positive for methamphetamine, pCO2 57 Patient presented from [facility], found by EMS was altered. U tox positive for methamphetamine and THC. Initial ABG showed pCO2 57 TSH 0.55, free T4 1.46 (normal), ammonia 21 B12 431 (normal), Folate 18.77 (normal) Plan: -Continue to treat COPD exacerbation, suspicion of meth intoxication, methamphetamine withdrawal -Neurochecks every 4 hours -bedside nurse swallow screen--passed #Acute hypoxic and hypercapnic respiratory failure 2/ #COPD exacerbation Patient was found by EMS, SpO2 85, significant wheezing noted, patient was given breathing treatment en route to hospital, in hospital on presentation patient was wheezing, ABG showed pH 7.26, pCO2 57, respiratory acidosis noted, bilateral wheezing noted. Patient was given DuoNeb breathing treatment x 1 and IV methylprednisone 125 x 1 in ED CXR negative for pnuemonia, mild HF Plan: -Ipratropium every 4 hours -Levalbuterol every 4 hour -taper IV Solu-Medrol 40 mg from BID to daily -Azithromycin 500 mg IV day for 5 days (03/27- -follow MRSA nasal screen -monitor O2 sats and titrate #Atrial fibrillation with RVR Patient's heart rate in 150s on presentation in ED, EKG significant for A-fib with RVR, patient was given IV diltiazem x 2 in ED Patient on diltiazem 240 p.o. every morning and Eliquis 5 mg p.o. twice daily Chadsvasc score 2 indicating 2.2% stroke risk Has-bled score: 2 points indicating indicating 4.1% risk of bleeding Plan -consult patient's trade mark attorney Dr. Jimenez for recommendations. Patient continues to remain in A-fib with tachycardia -continue 240 mg daily PO -continue Eliquis 5 mg PO BID -Telemonitoring -continue to monitor electolytes keeping potassium >4.0 and Mg >2.0 #HFmEF, EF 45-50% Last echo from 2019 shows EF 55%, no bilateral lower extremity edema noted, vascular congestion on chest x-ray suggestive of CHF. Echo on 03/27/24 showed mild systolic dysfunction with EF 45-50%. Plan: - Lasix 20 mg daily -daily weights -monitor IOs #History of type 2 diabetes On admission initial glucose 139. Last A1c 7.1 on 04/2022. This admission 6.3. No medications noticed on chart. -Bedside blood glucose checks ACHS -Insulin lispro sliding scale -Carb consistent low diet after swallow screen -Consulted machine icer -Diabetes education #Methamphetamine dependence #THC dependence U-Tox positive for methamphetamine, THC Counseled patient against illicit drug use Referred to social professionals #Bipolar disorder #Migraine disorder Pending med reconciliation DVT prophylaxis: Eliquis 5 mg BID GI prophylaxis: IV Protonix Diet: CHO diet Lines: Peripheral IV Code status: Full code The patient's management plan was discussed with my attending physician Dr. Peres and senior Dr. Mckeon. Danielle Carias, PGY-1 Attending Provider Attestation/Addendum I have discussed and was present for the essential components of the history, physical examination, diagnosis, and treatment plan with the resident. I agree with the patient's care as documented by the resident and amended herein by me. Deng Peres, DO. Although this document has been carefully reviewed, there may still be some phonetic and other typographical errors. These errors are purely grammatical due to imperfections in the software program and should not be construed in any way to compromise the substance of the patient's medical care during this visit.
--- NOTE | 2024-03-29 14:29 | PC.SS ---
SS follow up note: Pending Cardiology Rec's.
[2024-03-30] VITALS (14 sets, daily range): BP systolic 112–154; BP diastolic 71–99; PULSE 81–160; RESP 13–22; TEMP 36.2–36.6; O2SAT 90–100; BMI 38.0
[2024-03-30 05:39] LABS: Basophils % (Auto) 0 % (0-2.5); Eosinophils % (Auto) 0 % (0-10); Hemoglobin 11.8 g/dL (12.0-16.0); Immature Granulocytes % (Auto) 1 % (0-0); Immature Granulocytes Auto 0.08 Thou/mm3 (0.00-0.00); Lymphocytes # (Auto) 1.6 Thou/mm3 (1.0-4.8); Lymphocytes % (Auto) 11 % (10-50); Mean Corpuscular HGB Conc 31.9 g/dl (31.0-37.0); Mean Corpuscular Hemoglobin 27.5 pg (25.0-35.0); Mean Corpuscular Volume 86 fL (80-100); Monocytes % (Auto) 7 % (0-12); Neutrophils # (Auto) 11.8 Thou/mm3 (1.8-7.7); Neutrophils % (Auto) 81 % (37-80); Nucleated Red Blood Cell % 0 /100 WBC (0); Platelet Count 367 Thou/mm3 (140-440); RDW Standard Deviation 46.7 fL (36.4-46.3); Red Blood Count 4.29 Miln/mm3 (4.00-5.20); White Blood Count 14.5 Thou/mm3 (3.6-11.0)
[2024-03-30 06:26] LABS: Alanine Aminotransferase 23 U/L (10-49); Albumin, Serum 3.7 gm/dL (3.4-4.8); Albumin/Globulin Ratio 1.4 (1.2-2.2); Alkaline Phosphatase 70 U/L (46-116); Anion Gap 8 (7-16); Aspartate Amino Transferase < 10 U/L (0-34); BUN/Creatinine Ratio 39 Ratio (12-20); Bilirubin,Total 0.5 mg/dL (0.3-1.2); Blood Urea Nitrogen 27 mg/dL (9-23); Calcium 9.5 mg/dL (8.3-10.6); Calcium (Corrected) 9.7 mg/dL (8.5-10.1); Carbon Dioxide 28.1 mMol/L (20.0-31.0); Chloride 105 mMol/L (98-107); Creatinine (Component) 0.7 mg/dL (0.6-1.3); Estimated Creatinine Clearance 85.7 mL/min (>60); Globulin 2.6 gm/dL (2.3-3.5); Glucose 195 mg/dL (74-106); Magnesium 2.1 mg/dL (1.6-2.6); Osmolality,Calculated 291 (275-295); Phosphorous 2.4 mg/dL (2.4-5.1); Potassium 4.4 mMol/L (3.4-5.1); Sodium 141 mMol/L (136-145); Total Protein 6.3 gm/dL (5.7-8.2); eGFR > 60 See Note
[2024-03-30] MEDS: IPRATROPIUM RT 0.5 MG/ 2.5 ML NEBU INH ×3 (07:36→23:50)
[2024-03-30] MEDS: LEVALBUTEROL RT 0.63 MG/3 ML NEBU INH ×3 (07:36→23:50)
[2024-03-30] MEDS: ACETYLCYSTEINE RT SOL 10% 4 ML NEBU 3 ML INH ×3 (07:36→23:50)
--- NOTE | 2024-03-30 09:01 | ESPR_ITS ---
<Statement entered by Jennifer Mckeon MD - 03/30/24 11:56> I discussed with and supervised my co-resident involved in the care of this patient. I agree with the assessment and plan as documented above. Patient seen and examined at bedside. She is asymptomatic and BP is stable. Saturating 87% on 2L, remains in afib with RVR as high as the 140s despite morning medications. Will give 5 metoprolol push and titrate NC up to 3L as needed. Cardiology consulted for afib with RVR. Jennifer Mckeon MD PGY-3 Documentation for date of: 03/30/24 Subjective Subjective Interval history: Patient seen and examined at bedside. No acute events overnight. Patient states that she is not feeling well endorsing palpitations, abdominal discomfort. Telemetry was reviewed and she remains in a fib, tachy 140-150s. Cardiology Dr. Caldwell consulted. Will give metoprolol 5 mg push x1. Patient is saturating 96% on 2L NC. No SOB or LE edema. Rhonchi/wheezing still present bilaterally. Total output in past 24 hours 1.7 L. Continue IV Lasix 20 mg daily. Continue DuoNebs, methylprednisone 40 mg daily, azithromycin 500 daily in setting of COPD exacerbation. Exam Vital Signs Temp Pulse Resp BP Pulse Ox O2 Del Method O2 Flow Rate 97.3 F 112 H 21 H 129/94 H 95 Nasal Cannula 2 03/30/24 04:00 03/30/24 07:40 03/30/24 07:40 03/30/24 04:00 03/30/24 07:40 03/30/24 04:00 03/30/24 07:40 FiO2 55 03/29/24 12:00 Narrative Exam General: Unkempt elderly female, on NC, cooperative, tearful HEENT: NCAT, No JVD noted. Pupils are equal and reactive to light bilaterally Cardiovascular:Irregular RR, Tachycardic Respiratory: Bilateral rhonchi, on 2L NC Abdomen: Soft, nontender, not distended, normal bowel sounds. : aburto in place, Skin: Warm to touch, dry, no rashes noted Musculoskeletal: No gross injuries. Able to move all 4 extremities. No pitting edema Neuro: Alert and oriented x3. No focal neuro deficits. Objective Labs 03/30/24 04:22 03/30/24 04:22 Labs: Laboratory Results - last 24 hr 03/30/24 04:22 WBC 14.5 H RBC 4.29 Hgb 11.8 L Hct 37.0 MCV 86 MCH 27.5 MCHC 31.9 RDW Std Deviation 46.7 H Plt Count 367 D Neut % (Auto) 81 H Lymph % (Auto) 11 Casey % (Auto) 7 Eos % (Auto) 0 Baso % (Auto) 0 Neut # (Auto) 11.8 H Lymph # (Auto) 1.6 Casey # (Auto) 1.0 H Eos # (Auto) 0.0 Baso # (Auto) 0.0 Immature Gran # (Auto) 0.08 H Absolute Nucleated RBC 0.00 Immature Gran % 1 H Nucleated RBC % 0 Sodium 141 Potassium 4.4 Chloride 105 Carbon Dioxide 28.1 Anion Gap 8 BUN 27 H Creatinine 0.7 Estim Creat Clear Calc 85.7 eGFR > 60 BUN/Creatinine Ratio 39 H Glucose 195 H Calculated Osmolality 291 Calcium 9.5 Corrected Calcium 9.7 Phosphorus 2.4 Magnesium 2.1 Total Bilirubin 0.5 AST < 10 ALT 23 Alkaline Phosphatase 70 Total Protein 6.3 Albumin 3.7 Globulin 2.6 Albumin/Globulin Ratio 1.4 ABG Interpretation ABG results: 03/27/24 03/27/24 03/27/24 00:57 09:48 11:53 ABG pH 7.26 L 7.23 L 7.26 L ABG pCO2 57 H 61 H 54 H ABG pO2 71 L 86 286 H D ABG HCO3 25 25 24 ABG O2 Saturation 92 96 101 H ABG Base Excess -2 -3 -3 03/27/24 16:34 ABG pH 7.33 L ABG pCO2 48 ABG pO2 118 H D ABG HCO3 25 ABG O2 Saturation 100 H ABG Base Excess -1 Quality Measures Quality Measures none Assessment & Plan Assessment Current Active Medications: Generic Name Dose Route Start Last Admin Trade Name Freq PRN Reason Stop Dose Admin Acetaminophen 650 mg 03/28/24 15:00 03/28/24 15:07 Acetaminophen 325 Mg Tablet PO 04/27/24 14:59 650 mg Q6HR PRN Administration Fever >100.3 or pain Acetylcysteine 3 ml 03/29/24 23:00 03/30/24 07:36 Acetylcysteine Rt Amada 10% 4 Ml Nebu INH 04/28/24 22:59 3 ml Q8HRRT MANDA Administration Apixaban 5 mg 03/28/24 21:00 03/29/24 20:48 Apixaban 2.5 Mg Tablet PO 04/27/24 20:59 5 mg BID MANDA Administration Dextrose 25 ml 03/27/24 05:24 Dextrose 50%-Water Inj 50 Ml Syringe IV 04/26/24 05:23 Q15MIN PRN BG 50-70 responsive npo pt Dextrose 50 ml 03/27/24 05:24 Dextrose 50%-Water Inj 50 Ml Syringe IV 04/26/24 05:23 Q15MIN PRN BG <50 OR BG <70 & pt unresponsive Diltiazem HCl 240 mg 03/29/24 09:00 03/29/24 05:50 Diltiazem Cd 120 Mg Capcr PO 04/28/24 08:59 Not Given DAILY MANDA Furosemide 20 mg 03/28/24 12:00 03/29/24 08:58 Furosemide Inj 10 Mg/Ml Vial 2 Ml IVP 04/27/24 11:59 20 mg QDAY MANDA Administration Glucagon 1 mg 03/27/24 05:24 Glucagon Inj 1 Mg Vial IM Q15MIN PRN BG <70, and no IV access Guaifenesin 600 mg 03/27/24 11:14 Guaifenesin Er 600 Mg Tabcr PO 04/26/24 20:59 BID PRN cough Azithromycin 500 mg/ Sodium 250 mls @ 250 mls/hr 03/28/24 09:00 03/29/24 18:53 Chloride IV 04/02/24 08:59 Infused QDAY MANDA Infusion Insulin Human Lispro 0 unit 03/27/24 07:30 03/30/24 07:48 Insulin Lispro (Admelog) 1 Unit/0.01 Ml Unit SC 04/26/24 07:29 Not Given AC [facility] Protocol Ipratropium [place] 0.5 mg 03/28/24 23:00 03/30/24 07:36 Ipratropium Rt 0.5 Mg/ 2.5 Ml Nebu INH 04/27/24 22:59 0.5 mg Q8HRRT MANDA Administration Levalbuterol HCl 0.63 mg 03/28/24 23:00 03/30/24 07:36 Levalbuterol Rt 0.63 Mg/3 Ml Nebu INH 04/27/24 22:59 0.63 mg Q8HRRT MANDA Administration Methylprednisolone Sodium Succinate 40 mg 03/30/24 09:00 Methylprednisolone Sod Succ 40 Mg Vial IVP 04/06/24 08:59 DAILY [facility] Ondansetron HCl 4 mg 03/27/24 04:20 Ondansetron Inj 2 Mg/Ml Inj 2 Ml IV 04/26/24 04:19 Q6H PRN NAUSEA OR VOMITING Protocol Pantoprazole Sodium 40 mg 03/30/24 09:00 Pantoprazole 40 Mg Tablet PO 04/29/24 08:59 QDAY [facility] Protocol Plan Sammie Winston is a 63-year-old female with past medical history of COPD, atrial fibrillation, bipolar disorder, polysubstance use and migraine disorder who presented to [facility] emergency department from [facility] on 03/27/2024 with a chief complaint of altered mental status. Patient will be admitted to hospital for management of acute encephalopathy, COPD exacerbation and atrial fibrillation with RVR. #Acute encephalopathy-resolved Ddx: Multifactorial, Metabolic versus toxic, U-Tox positive for methamphetamine, pCO2 57 Patient presented from [facility], found by EMS was altered. U tox positive for methamphetamine and THC. Initial ABG showed pCO2 57 TSH 0.55, free T4 1.46 (normal), ammonia 21 B12 431 (normal), Folate 18.77 (normal) Plan: -Continue to treat COPD exacerbation, suspicion of meth intoxication, methamphetamine withdrawal -bedside nurse swallow screen--passed #Acute hypoxic and hypercapnic respiratory failure 2/ #COPD exacerbation Patient was found by EMS, SpO2 85, significant wheezing noted, patient was given breathing treatment en route to hospital, in hospital on presentation patient was wheezing, ABG showed pH 7.26, pCO2 57, respiratory acidosis noted, bilateral wheezing noted. Patient was given DuoNeb breathing treatment x 1 and IV methylprednisone 125 x 1 in ED CXR negative for pnuemonia, mild HF MRSA screen negative Plan: -Ipratropium every 4 hours -Levalbuterol every 4 hour -IV Solu-Medrol 40 mg daily -Azithromycin 500 mg IV day for 5 days (03/27- -monitor O2 sats and titrate #Atrial fibrillation with RVR Patient's heart rate in 150s on presentation in ED, EKG significant for A-fib with RVR, patient was given IV diltiazem x 2 in ED Patient on diltiazem 240 p.o. every morning and Eliquis 5 mg p.o. twice daily Chadsvasc score 2 indicating 2.2% stroke risk Has-bled score: 2 points indicating indicating 4.1% risk of bleeding Plan -consult patient's vest busheler Dr. Jimenez for recommendations. He is out of town -build automation engineer vest busheler Dr. Caldwell consulted. Recs pending. Patient continues to remain in A-fib with tachycardia -continue 240 mg daily PO -continue Eliquis 5 mg PO BID -Telemonitoring -continue to monitor electolytes keeping potassium >4.0 and Mg >2.0 #HFmEF, EF 45-50% Last echo from 2019 shows EF 55%, no bilateral lower extremity edema noted, vascular congestion on chest x-ray suggestive of CHF. Echo on 03/27/24 showed mild systolic dysfunction with EF 45-50%. Plan: - Lasix 20 mg daily -daily weights -monitor IOs #History of type 2 diabetes On admission initial glucose 139. Last A1c 7.1 on 04/2022. This admission 6.3. No medications noticed on chart. -Bedside blood glucose checks ACHS -Insulin lispro sliding scale -Carb consistent low diet after swallow screen -Consulted opto mechanical engineer -Diabetes education #Methamphetamine dependence #THC dependence U-Tox positive for methamphetamine, THC Counseled patient against illicit drug use Referred to social worker masters #Bipolar disorder #Migraine disorder Pending med reconciliation DVT prophylaxis: Eliquis 5 mg BID GI prophylaxis: IV Protonix Diet: CHO diet Lines: Peripheral IV Code status: Full code The patient's management plan was discussed with my attending physician Dr. Peres and senior Dr. Mckeon. Danielle Carias, PGY-1 Attending Provider Attestation/Addendum I have discussed and was present for the essential components of the history, physical examination, diagnosis, and treatment plan with the resident. I agree with the patient's care as documented by the resident and amended herein by me. Deng Peres DO. Patient seen and evaluated this AM. Overnight, patient's heart rate still uncontrolled, not at goal, remains on 2 L O2 via NC, SpO2 95%, significant labs included WBC of 14, potassium and magnesium greater than 4 and 2 respectively. Cardiology consulted, appreciate recommendations, will continue current management for now however will give a small push of Lopressor this morning pending cardiology recommendations. Although this document has been carefully reviewed, there may still be some phonetic and other typographical errors. These errors are purely grammatical due to imperfections in the software program and should not be construed in any way to compromise the substance of the patient's medical care during this visit.
[2024-03-30] MEDS: DILTIAZEM CD 120 MG CAPCR 240 MG PO (09:18)
[2024-03-30] MEDS: APIXABAN 2.5 MG TABLET 5 MG PO ×2 (09:18→20:46)
[2024-03-30] MEDS: AZITHROMYCIN INJ 500 MG in SODIUM CHLORIDE 0.9% 250 ML 250 ML 250 MG IV (09:20)
[2024-03-30] MEDS: FUROSEMIDE INJ 10 MG/ML VIAL 2 ML 20 MG IVP (09:21)
[2024-03-30] MEDS: PANTOPRAZOLE 40 MG TABLET PO (09:21)
--- NOTE | 2024-03-30 10:18 | ESCONSULT_ITS ---
<Statement entered by Gentry Caldwell MD - 04/01/24 17:38> I personally evaluated examined the patient with Dr. Edwin Stoner, PGY 1 all essential complaints the consultation report is reviewed patient history of chronic meth use and also atrial fibrillation chronic episode came with multiple symptoms recommend to continue medical management agree with the treatment plan recommendation as recommended recommended strongly to decrease or avoid drug use. Since the patient has known history of atrial fibrillation no further workup is necessary at this time. HPI Data of Consult Requesting Physician: Val Brooks DO Admitting Provider: Edgar Sánchez MD Attending Provider: Val Brooks DO Primary Care Provider: Physician No Primary/Family Consult Narrative Reason for consult: Uncontrolled A-fib with RVR History of present illness: 63-year-old female with past medical history of COPD, atrial fibrillation, bipolar disorder, polysubstance use and migraine disorder presented t on 03/27/2024 with a chief complaint of altered mental status. Patient was brought in by ambulance, was found to have altered mental status by EMS, SpO2 82 and significant wheezing was noted, patient was given a breathing treatment en route to the hospital. On bedside patient was arousable to name, unable to follow commands, protecting airway. In the ED on presentation patient's heart rate was 157, EKG showed atrial fibrillation with RVR, patient was given 2 doses of 10 mg IV Dilt, heart rate improved, patient was found to have wheezing significantly, was given methylprednisone 125 x 1 and a breathing treatment which improved patient's breathing, patient currently saturating well on 2 L via oxy mask, bilateral wheezing noted. Patient's U-Tox was positive for methamphetamine and marijuana. Patient was admitted to hospital for management of acute encephalopathy, COPD exacerbation and atrial fibrillation with RVR. Patient was initially on diltiazem drip, transition to home medication of diltiazem 240 mg p.o. daily. Despite this patient has remained in A-fib with RVR since admission. Patient mentation improved, currently A&O x 3. Patient complains of palpitations with fluttering sensation but denies chest pain, shortness of breath, weakness, lightheadedness. Patient has not had hypotension during this hospital stay. ED Course: ED Labs: significant for Hemoglobin 11.8, MCHC 30.9, APTT 21.5, pH 7.26, pCO2 57 chloride 110, BUN 24, glucose 139, BNP 213 U tox positive for methamphetamine and marijuana ED Imaging: X-ray in ED shows moderate vascular congestion, pending official read CT head preliminary report shows no intracranial hemorrhage, mass effect or midline shift. Generalized cerebral atrophy with chronic small vessel ischemic changes with chronic infarcts ED Treatment:Patient was given methylprednisone 125 IV x 1, DuoNeb x 1, Dilt 10 mg x 2 in ED cc:: cc: Val Brooks DO Review of Systems Review of Systems Systems Reviewed: All systems reviewed, normal except as documented Past Medical History Past Medical History Comments PMH COMMENT: Positive for COPD, atrial fibrillation, bipolar disorder, polysubstance use and migraine disorder PSHx: Positive for abdominal surgery, section Allergies: Ibuprofen, aspirin, penicillin Social history: -Smoking: Positive for smoking in past -Alcohol Use: Denies -Illicit Drug Use: U tox positive for meth and marijuana Exam Vital Signs Temp Pulse Resp BP Pulse Ox O2 Del Method O2 Flow Rate 97.3 F 113 H 14 154/99 H 99 Nasal Cannula 2 03/30/24 08:00 03/30/24 09:21 03/30/24 08:00 03/30/24 09:21 03/30/24 08:00 03/30/24 08:00 03/30/24 08:00 FiO2 55 03/29/24 12:00 Narrative Exam PE: Gen: Elderly female, appears chronically ill. HEENT: NCAT, PERRLA, EOMI, MMM, anicteric conjunctivae. CVS: normal S1 and S2. No M/R/G. Irregular irregular rhythm, rapid rate. Resp: Diffuse expiratory wheezing. Abd: soft, non-tender, non-distended. MSK: Good ROM in BUE & BLE. No edema or rash. Neuro: CN II-XII grossly intact. Strength 5/5 in BUE & BLE. Alert and oriented x3. Psych: appropriate mood and affect. Results Labs 03/31/24 04:33 03/31/24 04:33 Labs: Short CBC 03/30/24 Range/Units 04:22 WBC 14.5 H (3.6-11.0) Thou/mm3 Hgb 11.8 L (12.0-16.0) g/dL Hct 37.0 (36.0-46.0) % Plt Count 367 D (140-440) Thou/mm3 BMP 03/30/24 04:22 Sodium 141 Potassium 4.4 Chloride 105 Carbon Dioxide 28.1 BUN 27 H Creatinine 0.7 Glucose 195 H Calcium 9.5 Liver Function 03/30/24 Range/Units 04:22 Total Bilirubin 0.5 (0.3-1.2) mg/dL AST < 10 (0-34) U/L ALT 23 (10-49) U/L Alkaline Phosphatase 70 (46-116) U/L Albumin 3.7 (3.4-4.8) gm/dL ABG Interpretation ABG results: 03/27/24 03/27/24 03/27/24 00:57 09:48 11:53 ABG pH 7.26 L 7.23 L 7.26 L ABG pCO2 57 H 61 H 54 H ABG pO2 71 L 86 286 H D ABG HCO3 25 25 24 ABG O2 Saturation 92 96 101 H ABG Base Excess -2 -3 -3 03/27/24 16:34 ABG pH 7.33 L ABG pCO2 48 ABG pO2 118 H D ABG HCO3 25 ABG O2 Saturation 100 H ABG Base Excess -1 Quality Measures Quality Measures VTE prophylaxis Medications Home Medications and Allergies Allergies Allergy/AdvReac Type Severity Reaction Status Date / Time ibuprofen Allergy Severe TONGUE Verified 11/26/22 09:28 SWELLS aspirin Allergy Mild RASH Verified 11/26/22 09:28 Penicillins Allergy Mild Rash Verified 11/26/22 09:28 Visit Medications Acetaminophen (Acetaminophen 325 Mg Tablet) 650 mg PO Q6HR PRN PRN Reason: Fever >100.3 or pain Stop: 04/27/24 14:59 Last Admin: 03/28/24 15:07 Dose: 650 mg Acetylcysteine (Acetylcysteine Rt [place] 10% 4 Ml Nebu) 3 ml INH Q8HRRT MANDA Stop: 04/28/24 22:59 Last Admin: 03/30/24 07:36 Dose: 3 ml Apixaban (Apixaban 2.5 Mg Tablet) 5 mg PO BID MANDA Stop: 04/27/24 20:59 Last Admin: 03/30/24 09:18 Dose: 5 mg Dextrose (Dextrose 50%-Water Inj 50 Ml Syringe) 25 ml IV Q15MIN PRN PRN Reason: BG 50-70 responsive npo pt Stop: 04/26/24 05:23 Dextrose (Dextrose 50%-Water Inj 50 Ml Syringe) 50 ml IV Q15MIN PRN PRN Reason: BG <50 OR BG <70 & pt unresponsive Stop: 04/26/24 05:23 Diltiazem HCl (Diltiazem Cd 120 Mg Capcr) 240 mg PO DAILY [facility] Stop: 04/28/24 08:59 Last Admin: 03/30/24 09:18 Dose: 240 mg Furosemide (Furosemide Inj 10 Mg/Ml Vial 2 Ml) 20 mg IVP QDAY [facility] Stop: 04/27/24 11:59 Last Admin: 03/30/24 09:21 Dose: 20 mg Glucagon (Glucagon Inj 1 Mg Vial) 1 mg IM Q15MIN PRN PRN Reason: BG <70, and no IV access Guaifenesin (Guaifenesin Er 600 Mg Tabcr) 600 mg PO BID PRN PRN Reason: cough Stop: 04/26/24 20:59 Azithromycin 500 mg/ Sodium (Chloride) 250 mls @ 250 mls/hr IV QDAY [facility] Stop: 04/02/24 08:59 Last Admin: 03/30/24 09:20 Dose: 250 mls/hr Insulin Human Lispro (Insulin Lispro (Admelog) 1 Unit/0.01 Ml Unit) 0 unit SC [facility]; Protocol Stop: 04/26/24 07:29 Last Admin: 03/30/24 07:48 Dose: Not Given Ipratropium [place] (Ipratropium Rt 0.5 Mg/ 2.5 Ml Nebu) 0.5 mg INH Q8HRRT [facility] Stop: 04/27/24 22:59 Last Admin: 03/30/24 07:36 Dose: 0.5 mg Levalbuterol HCl (Levalbuterol Rt 0.63 Mg/3 Ml Nebu) 0.63 mg INH Q8HRRT [facility] Stop: 04/27/24 22:59 Last Admin: 03/30/24 07:36 Dose: 0.63 mg Methylprednisolone Sodium Succinate (Methylprednisolone Sod Succ 40 Mg Vial) 40 mg IVP DAILY [facility] Stop: 04/03/24 08:59 Last Admin: 03/30/24 09:22 Dose: 40 mg Ondansetron HCl (Ondansetron Inj 2 Mg/Ml Inj 2 Ml) 4 mg IV Q6H PRN; Protocol PRN Reason: NAUSEA OR VOMITING Stop: 04/26/24 04:19 Pantoprazole Sodium (Pantoprazole 40 Mg Tablet) 40 mg PO QDAY MANDA; Protocol Stop: 04/29/24 08:59 Last Admin: 03/30/24 09:21 Dose: 40 mg Discontinued Medications Acetaminophen (Acetaminophen Supp 650 Mg Supp) 650 mg MD Q6HR PRN PRN Reason: [id number] Stop: 04/26/24 04:19 Acetylcysteine (Acetylcysteine Rt [place]ada 10% 4 Ml Nebu) 3 ml INH Q6HRRT PRN PRN Reason: congestion Stop: 04/26/24 11:12 Acetylcysteine (Acetylcysteine Rt [place] 10% 4 Ml Nebu) 3 ml INH Q4HRRT MANDA Stop: 04/26/24 14:59 Last Admin: 03/29/24 14:28 Dose: 3 ml Albuterol/Ipratropium (Albuterol/Ipratropium (Duoneb) Rt Amada 3 Ml Nebu) 3 ml INH X1 ONE Stop: 03/27/24 00:14 Last Admin: 03/27/24 00:46 Dose: 3 ml Diltiazem HCl (Diltiazem Inj 5 Mg/Ml Vial 5 Ml) 10 mg IV X1 ONE Stop: 03/27/24 02:37 Last Admin: 03/27/24 02:51 Dose: 10 mg Diltiazem HCl (Diltiazem Inj 5 Mg/Ml Vial 5 Ml) 10 mg IV X1 ONE Stop: 03/27/24 03:42 Last Admin: 03/27/24 03:47 Dose: 10 mg Diltiazem HCl (Diltiazem Inj 5 Mg/Ml Vial 5 Ml) 10 mg IV X1 ONE Stop: 03/28/24 16:00 Last Admin: 03/28/24 16:55 Dose: 10 mg Diltiazem HCl (Diltiazem Inj 5 Mg/Ml Vial 5 Ml) 10 mg IV X1 ONE Stop: 03/28/24 21:59 Last Admin: 03/28/24 22:28 Dose: 10 mg Diltiazem HCl (Diltiazem 30 Mg Tablet) 30 mg PO X1 ONE Stop: 03/28/24 22:02 Last Admin: 03/28/24 22:27 Dose: 30 mg Diltiazem HCl (Diltiazem Cd 120 Mg Capcr) 240 mg PO X1 ONE Stop: 03/29/24 05:50 Last Admin: 03/29/24 06:13 Dose: 240 mg Heparin Sodium (Porcine) (Heparin Sod Inj 5000 Unit/Ml Vial) 4,900 unit 60 unit/kg (4900 unit) IV X1 ONE; Protocol Stop: 03/27/24 04:27 Last Admin: 03/27/24 05:10 Dose: 4,900 unit Heparin Sodium (Porcine) (Heparin Sod Inj 5000 Unit/Ml Vial) 4,000 unit IVP X1 ONE Stop: 03/27/24 12:49 Last Admin: 03/27/24 13:14 Dose: 4,000 unit Heparin Sodium (Porcine) (Heparin Sod Inj 5000 Unit/Ml Vial) 2,000 unit IV PRN ONE Stop: 03/27/24 20:07 Last Admin: 03/27/24 20:17 Dose: 2,000 unit Heparin Sodium/Dextrose (Heparin In D5w Ivpb) 25,000 unit in 250 mls @ 9.798 mls/hr IV .Q24H MANDA; Protocol Stop: 04/10/24 04:29 Last Titration: 03/28/24 12:28 Dose: 0 units/kg/hr, 0 mls/hr Diltiazem HCl (Diltiazem In D5w 125 Mg) 125 mg in 125 mls @ 5 mls/hr IV .Q24H [facility] Stop: 04/27/24 05:43 Last Admin: 03/28/24 07:47 Dose: Not Given Diltiazem HCl (Diltiazem In D5w 125 Mg) 125 mg in 125 mls @ 5 mls/hr IV .Q24H MANDA Stop: 03/28/24 05:44 Last Infusion: 03/28/24 19:07 Dose: Infused Azithromycin 500 mg/ Sodium (Chloride) 250 mls @ 250 mls/hr IV X1 ONE Stop: 03/27/24 05:59 Last Infusion: 03/27/24 07:20 Dose: Infused Diltiazem HCl 125 mg/ Dextrose 125 mls @ 5 mls/hr IV .Q24H [facility] Stop: 04/27/24 05:43 Last Infusion: 03/28/24 12:28 Dose: 0 mg/hr, 0 mls/hr Ipratropium [place] (Ipratropium Rt 0.5 Mg/ 2.5 Ml Nebu) mg INH Q4HRRT MANDA Stop: 04/26/24 06:59 Ipratropium [place] (Ipratropium Rt 0.5 Mg/ 2.5 Ml Nebu) 0.5 mg INH Q4HRRT MANDA Stop: 04/26/24 06:59 Last Admin: 03/28/24 15:39 Dose: Not Given Levalbuterol HCl (Levalbuterol Rt 0.63 Mg/3 Ml Nebu) 0.63 mg INH Q4HRRT MANDA Stop: 04/26/24 06:59 Last Admin: 03/28/24 15:39 Dose: Not Given Methylprednisolone Sodium Succinate (Methylprednisolone Sod Succ 62.5 Mg/Ml 2ml Vial) 125 mg IV X1 ONE Stop: 03/27/24 00:14 Last Admin: 03/27/24 00:34 Dose: 125 mg Methylprednisolone Sodium Succinate (Methylprednisolone Sod Succ 62.5 Mg/Ml 2ml Vial) 40 mg IVP Q8HR MANDA Stop: 04/03/24 05:59 Last Admin: 03/27/24 05:09 Dose: 40 mg Methylprednisolone Sodium Succinate (Methylprednisolone Sod Succ 40 Mg Vial) 40 mg IVP Q8HR MANDA Stop: 04/03/24 05:59 Last Admin: 03/28/24 05:03 Dose: 40 mg Methylprednisolone Sodium Succinate (Methylprednisolone Sod Succ 40 Mg Vial) 40 mg IVP BID MANDA Stop: 04/04/24 20:59 Last Admin: 03/29/24 08:58 Dose: 40 mg Metoprolol Tartrate (Metoprolol Tartrate Inj 1 Mg/Ml Amp 5 Ml) 5 mg IVP X1 ONE Stop: 03/29/24 10:23 Pantoprazole Sodium (Pantoprazole Inj 40 Mg Vial) 40 mg IVP QDAY MANDA Stop: 04/26/24 08:59 Last Admin: 03/29/24 08:59 Dose: 40 mg Assessment & Plan Plan 63-year-old female with past medical history of COPD, atrial fibrillation, bipolar disorder, polysubstance use and migraine disorder presented with a chief complaint of altered mental status, admitted to hospital for management of acute encephalopathy, COPD exacerbation and atrial fibrillation with RVR. Cardiology consulted for uncontrolled A-fib with RVR. #Atrial fibrillation with RVR Patient's heart rate in 150s on presentation in ED, EKG significant for A-fib with RVR, patient was given IV diltiazem x 2 in ED. Patient was started on diltiazem drip before transitioning to patient's home medication; diltiazem to 40 p.o. daily. Patient receiving Eliquis 5 mg p.o. twice daily. Chadsvasc score 2 indicating 2.2% stroke risk. Has-bled score: 2 points indicating indicating 4.1% risk of bleeding. Patient follows with stakes player Dr. Jimenez outpatient. Despite treatment with diltiazem patient remains in uncontrolled A-fib with RVR, per telemetry monitoring heart rate is weeks as high as 160, on exam patient's heart rate approximately 130. -continue diltiazem 240 mg daily PO -continue Eliquis 5 mg PO BID -Metoprolol succinate 25 mg PO BID -Telemonitoring -continue to monitor electolytes keeping potassium >4.0 and Mg >2.0 #HFpEF, EF 45-50% Echo performed 03/27/2024 shows EF 45-50% with diastolic dysfunction. No bilateral lower extremity edema noted, vascular congestion on chest x-ray suggestive of CHF. -Lasix 20 mg IV daily -daily weights -Strict I's and O's #Acute encephalopathy-resolved #Acute hypoxic and hypercapnic respiratory failure 2/ #COPD exacerbation #History of type 2 diabetes #Methamphetamine dependence #THC dependence #Bipolar disorder #Migraine disorder Management as per primary team. DVT prophylaxis: Eliquis 5 mg BID GI prophylaxis: IV Protonix Diet: Carb consistent Lines: Peripheral IV Code status: Full code Plan of care discussed with attending Dr. Caldwell. Edwin Angelo MD PGY?1
[2024-03-30] MEDS: METOPROLOL TARTRATE INJ 1 MG/ML AMP 5 ML 5 MG IVP (11:15)
[2024-03-30] MEDS: INSULIN LISPRO (AdmeLOG) 1 UNIT/0.01 ML UNIT SC ×2 (11:59→16:32)
[2024-03-30] MEDS: METOPROLOL SUCCINATE XL 25 MG TABCR PO (20:46)
[2024-03-31] VITALS (10 sets, daily range): BP systolic 102–130; BP diastolic 67–94; PULSE 85–112; RESP 18–28; TEMP 36.2–36.8; O2SAT 90–98; BMI 36.1
[2024-03-31] MEDS: guaiFENesin ER 600 MG TABCR PO (05:16)
[2024-03-31 05:55] LABS: Basophils % (Auto) 0 % (0-2.5); Eosinophils % (Auto) 0 % (0-10); Hematocrit 36.8 % (36.0-46.0); Hemoglobin 11.9 g/dL (12.0-16.0); Immature Granulocytes % (Auto) 1 % (0-0); Immature Granulocytes Auto 0.08 Thou/mm3 (0.00-0.00); Lymphocytes # (Auto) 1.6 Thou/mm3 (1.0-4.8); Lymphocytes % (Auto) 12 % (10-50); Mean Corpuscular HGB Conc 32.3 g/dl (31.0-37.0); Mean Corpuscular Hemoglobin 27.3 pg (25.0-35.0); Mean Corpuscular Volume 84 fL (80-100); Monocytes # (Auto) 1.1 Thou/mm3 (0.0-0.8); Monocytes % (Auto) 8 % (0-12); Neutrophils # (Auto) 10.2 Thou/mm3 (1.8-7.7); Neutrophils % (Auto) 78 % (37-80); Nucleated Red Blood Cell % 0 /100 WBC (0); Platelet Count 290 Thou/mm3 (140-440); Red Blood Count 4.36 Miln/mm3 (4.00-5.20)
[2024-03-31 06:36] LABS: Alanine Aminotransferase 27 U/L (10-49); Albumin, Serum 3.6 gm/dL (3.4-4.8); Albumin/Globulin Ratio 1.4 (1.2-2.2); Alkaline Phosphatase 67 U/L (46-116); Anion Gap 7 (7-16); Aspartate Amino Transferase 15 U/L (0-34); BUN/Creatinine Ratio 34 Ratio (12-20); Bilirubin,Total 0.6 mg/dL (0.3-1.2); Blood Urea Nitrogen 24 mg/dL (9-23); Calcium 9.4 mg/dL (8.3-10.6); Calcium (Corrected) 9.7 mg/dL (8.5-10.1); Carbon Dioxide 28.2 mMol/L (20.0-31.0); Chloride 103 mMol/L (98-107); Creatinine (Component) 0.7 mg/dL (0.6-1.3); Estimated Creatinine Clearance 83.4 mL/min (>60); Globulin 2.5 gm/dL (2.3-3.5); Glucose 170 mg/dL (74-106); Magnesium 2.1 mg/dL (1.6-2.6); Osmolality,Calculated 283 (275-295); Potassium 4.1 mMol/L (3.4-5.1); Sodium 138 mMol/L (136-145); Total Protein 6.1 gm/dL (5.7-8.2); eGFR > 60 See Note
[2024-03-31] MEDS: LEVALBUTEROL RT 0.63 MG/3 ML NEBU INH ×2 (06:42→23:03)
[2024-03-31] MEDS: IPRATROPIUM RT 0.5 MG/ 2.5 ML NEBU INH ×2 (06:42→23:03)
[2024-03-31] MEDS: ACETYLCYSTEINE RT SOL 10% 4 ML NEBU 3 ML INH ×2 (06:42→23:02)
[2024-03-31] MEDS: APIXABAN 2.5 MG TABLET 5 MG PO ×2 (08:34→21:02)
[2024-03-31] MEDS: PANTOPRAZOLE 40 MG TABLET PO (08:34)
[2024-03-31] MEDS: AZITHROMYCIN 250 MG TABLET 500 MG PO (08:34)
[2024-03-31] MEDS: FUROSEMIDE INJ 10 MG/ML VIAL 2 ML 20 MG IVP (08:35)
[2024-03-31] MEDS: METOPROLOL SUCCINATE XL 25 MG TABCR PO ×2 (08:36→21:02)
[2024-03-31] MEDS: INSULIN GLARGINE (Lantus) 5 UNIT/0.05 ML (PER 5 UNITS) SC (08:38)
--- NOTE | 2024-03-31 10:24 | ESPR_ITS ---
<Statement entered by Gentry Caldwell MD - 04/01/24 17:46> I evaluated the patient with the PGY 1 Dr. Stoner patient appears to be clinically stable A-fib rate controlled continue present medication unchanged no further recommendations at this time. Documentation for date of: 03/31/24 Subjective Subjective Interval history: No overnight events. Patient seen and examined at bedside. Patient sitting edge of bed, resting comfortably. Patient complains of shortness of breath, but feels subjectively better, states she no other has palpitations. Denies chest pain, weakness, fatigue. Continue current medical management. Exam Vital Signs Temp Pulse Resp BP Pulse Ox O2 Del Method O2 Flow Rate 97.8 F 93 18 116/88 H 98 Nasal Cannula 2 03/31/24 08:00 03/31/24 08:36 03/31/24 08:00 03/31/24 08:36 03/31/24 08:00 03/31/24 08:00 03/31/24 08:00 FiO2 55 03/31/24 03:45 Narrative Exam PE: Gen: Elderly female, appears chronically ill. HEENT: NCAT, PERRLA, EOMI, MMM, anicteric conjunctivae. CVS: normal S1 and S2. No M/R/G. Irregular irregular rhythm, regular rate. Resp: Diffuse expiratory wheezing. Abd: soft, non-tender, non-distended. MSK: Good ROM in BUE & BLE. No edema or rash. Neuro: CN II-XII grossly intact. Strength 5/5 in BUE & BLE. Alert and oriented x3. Psych: appropriate mood and affect. Objective Labs 03/31/24 04:33 03/31/24 04:33 Labs: Laboratory Results - last 24 hr 03/31/24 04:33 WBC 13.0 H RBC 4.36 Hgb 11.9 L Hct 36.8 MCV 84 MCH 27.3 MCHC 32.3 RDW Std Deviation 45.0 Plt Count 290 D Neut % (Auto) 78 Lymph % (Auto) 12 [place] % (Auto) 8 Eos % (Auto) 0 Baso % (Auto) 0 Neut # (Auto) 10.2 H Lymph # (Auto) 1.6 [place] # (Auto) 1.1 H Eos # (Auto) 0.0 Baso # (Auto) 0.0 Immature Gran # (Auto) 0.08 H Absolute Nucleated RBC 0.00 Immature Gran % 1 H Nucleated RBC % 0 Sodium 138 Potassium 4.1 Chloride 103 Carbon Dioxide 28.2 Anion Gap 7 BUN 24 H Creatinine 0.7 Estim Creat Clear Calc 83.4 eGFR > 60 BUN/Creatinine Ratio 34 H Glucose 170 H Calculated Osmolality 283 Calcium 9.4 Corrected Calcium 9.7 Magnesium 2.1 Total Bilirubin 0.6 AST 15 ALT 27 Alkaline Phosphatase 67 Total Protein 6.1 Albumin 3.6 Globulin 2.5 Albumin/Globulin Ratio 1.4 ABG Interpretation ABG results: 03/27/24 03/27/24 03/27/24 00:57 09:48 11:53 ABG pH 7.26 L 7.23 L 7.26 L ABG pCO2 57 H 61 H 54 H ABG pO2 71 L 86 286 H D ABG HCO3 25 25 24 ABG O2 Saturation 92 96 101 H ABG Base Excess -2 -3 -3 03/27/24 16:34 ABG pH 7.33 L ABG pCO2 48 ABG pO2 118 H D ABG HCO3 25 ABG O2 Saturation 100 H ABG Base Excess -1 Quality Measures Quality Measures VTE prophylaxis Assessment & Plan Assessment Current Active Medications: Generic Name Dose Route Start Last Admin Trade Name Freq PRN Reason Stop Dose Admin Acetaminophen 650 mg 03/28/24 15:00 03/28/24 15:07 Acetaminophen 325 Mg Tablet PO 04/27/24 14:59 650 mg Q6HR PRN Administration Fever >100.3 or pain Acetylcysteine 3 ml 03/29/24 23:00 03/31/24 06:42 Acetylcysteine Rt Amada 10% 4 Ml Nebu INH 04/28/24 22:59 3 ml Q8HRRT MANDA Administration Apixaban 5 mg 03/28/24 21:00 03/31/24 08:34 Apixaban 2.5 Mg Tablet PO 04/27/24 20:59 5 mg BID MANDA Administration Dextrose 25 ml 03/27/24 05:24 Dextrose 50%-Water Inj 50 Ml Syringe IV 04/26/24 05:23 Q15MIN PRN BG 50-70 responsive npo pt Dextrose 50 ml 03/27/24 05:24 Dextrose 50%-Water Inj 50 Ml Syringe IV 04/26/24 05:23 Q15MIN PRN BG <50 OR BG <70 & pt unresponsive Diltiazem HCl 240 mg 03/29/24 09:00 03/30/24 09:18 Diltiazem Cd 120 Mg Capcr PO 04/28/24 08:59 240 mg DAILY MANDA Administration Furosemide 20 mg 03/28/24 12:00 03/31/24 08:35 Furosemide Inj 10 Mg/Ml Vial 2 Ml IVP 04/27/24 11:59 20 mg QDAY MANDA Administration Glucagon 1 mg 03/27/24 05:24 Glucagon Inj 1 Mg Vial IM Q15MIN PRN BG <70, and no IV access Guaifenesin 600 mg 03/27/24 11:14 03/31/24 05:16 Guaifenesin Er 600 Mg Tabcr PO 04/26/24 20:59 600 mg BID PRN Administration cough Insulin Glargine 5 unit 03/31/24 07:55 03/31/24 08:38 Insulin Glargine (Lantus) 5 Unit/0.05 Ml (Per 5 Units) SC 04/30/24 07:54 5 unit QDAY MANDA Administration Insulin Human Lispro 0 unit 03/27/24 07:30 03/31/24 08:18 Insulin Lispro (Admelog) 1 Unit/0.01 Ml Unit SC 04/26/24 07:29 Not Given AC [facility] Protocol Ipratropium [place] 0.5 mg 03/28/24 23:00 03/31/24 06:42 Ipratropium Rt 0.5 Mg/ 2.5 Ml Nebu INH 04/27/24 22:59 0.5 mg Q8HRRT MANDA Administration Levalbuterol HCl 0.63 mg 03/28/24 23:00 03/31/24 06:42 Levalbuterol Rt 0.63 Mg/3 Ml Nebu INH 04/27/24 22:59 0.63 mg Q8HRRT MANDA Administration Methylprednisolone Sodium Succinate 40 mg 03/30/24 09:00 03/31/24 08:34 Methylprednisolone Sod Succ 40 Mg Vial IVP 04/03/24 08:59 40 mg DAILY MANDA Administration Metoprolol Succinate 25 mg 03/30/24 21:00 03/31/24 08:36 Metoprolol Succinate Xl 25 Mg Tabcr PO 04/29/24 20:59 25 mg BID MANDA Administration Ondansetron HCl 4 mg 03/27/24 04:20 Ondansetron Inj 2 Mg/Ml Inj 2 Ml IV 04/26/24 04:19 Q6H PRN NAUSEA OR VOMITING Protocol Pantoprazole Sodium 40 mg 03/30/24 09:00 03/31/24 08:34 Pantoprazole 40 Mg Tablet PO 04/29/24 08:59 40 mg QDAY MANDA Administration Protocol Plan 63-year-old female with past medical history of COPD, atrial fibrillation, bipolar disorder, polysubstance use and migraine disorder presented with a chief complaint of altered mental status, admitted to hospital for management of acute encephalopathy, COPD exacerbation and atrial fibrillation with RVR. Cardiology consulted for uncontrolled A-fib with RVR. #Atrial fibrillation with RVR Patient's heart rate in 150s on presentation in ED, EKG significant for A-fib with RVR, patient was given IV diltiazem x 2 in ED. Patient was started on diltiazem drip before transitioning to patient's home medication; diltiazem to 40 p.o. daily. Patient receiving Eliquis 5 mg p.o. twice daily. Chadsvasc score 2 indicating 2.2% stroke risk. Has-bled score: 2 points indicating indicating 4.1% risk of bleeding. Patient follows with shoe dresser Dr. Jimenez outpatient. Despite treatment with diltiazem patient remains in uncontrolled A-fib with RVR, per telemetry monitoring heart rate is weeks as high as 160, on exam patient's heart rate approximately 130. After initiating metoprolol succinate, patient's heart rate decreased to 90?100, remains irregular regular rhythm. -continue diltiazem 240 mg daily PO -continue Eliquis 5 mg PO BID -Metoprolol succinate 25 mg PO BID -Telemonitoring -continue to monitor electolytes keeping potassium >4.0 and Mg >2.0 #HFpEF, EF 45-50% Echo performed 03/27/2024 shows EF 45-50% with diastolic dysfunction. No bilateral lower extremity edema noted, vascular congestion on chest x-ray suggestive of CHF. -Lasix 20 mg IV daily -daily weights -Strict I's and O's #Acute encephalopathy-resolved #Acute hypoxic and hypercapnic respiratory failure 2/ #COPD exacerbation #History of type 2 diabetes #Methamphetamine dependence #THC dependence #Bipolar disorder #Migraine disorder Management as per primary team. DVT prophylaxis: Eliquis 5 mg BID GI prophylaxis: IV Protonix Diet: Carb consistent Lines: Peripheral IV Code status: Full code Plan of care discussed with attending Dr. Caldwell. Edwin Angelo MD PGY?1
--- NOTE | 2024-03-31 10:30 | PC.SS ---
SS met with patient at bedside to confirm discharge plan. SS informed her that when SS met with her at bedside before she had mentioned she lived at home with her . Patient reported that the address she has on file is her best friends home, which she allows her to stay at her home at times. Patient reported that at time of discharge she will discharge out to the community. SS will stand by for further needs.
[2024-03-31] MEDS: INSULIN LISPRO (AdmeLOG) 1 UNIT/0.01 ML UNIT SC ×2 (12:06→17:24)
--- NOTE | 2024-03-31 15:16 | PC.SS ---
SS follow up note; Weaning off 02. Patient refusing SNF.
--- NOTE | 2024-03-31 16:02 | ESPR_ITS ---
<Statement entered by Jennifer Mckeon MD - 03/31/24 17:09> I discussed with and supervised my co-resident involved in the care of this patient. I agree with the assessment and plan as documented above. Patient seen and examined at bedside. Off BIPAP, on NC. Has dry cough, unproductive. Heart rate and afib rate improved <110s, now on diltiazem and metoprolol. Patient is homeless and may need home O2. She does not want to go to SNF. Will try to wean patient off O2 and anticipate discharge tomorrow. Patient will need close follow up with her primary care physician. Jennifer Mckeon MD PGY-3 Documentation for date of: 03/31/24 Subjective Subjective Interval history: Seen and examined at bedside. States she is feeling better today. Denies chest pain or palpitations. On 3LNC at 94%. Was planning to send pt to SNF on oxygen, however she is refusing. Per cardiology, continue diltiazem 240 mg daily and start MP xL 25mg BID. HR has improved today 90-100. She remains in afib after reviewing tele. PT neva says she desats to 86%. Will continue to titrate o2 for possible discharge tomorrow. Exam Vital Signs Temp Pulse Resp BP Pulse Ox O2 Del Method O2 Flow Rate 98.3 F 96 25 H 102/81 90 L Nasal Cannula 2 03/31/24 12:00 03/31/24 12:00 03/31/24 12:00 03/31/24 12:00 03/31/24 12:00 03/31/24 12:00 03/31/24 12:00 FiO2 55 03/31/24 12:00 Narrative Exam General: Unkempt elderly female, on NC, cooperative, tearful HEENT: NCAT, No JVD noted. Pupils are equal and reactive to light bilaterally Cardiovascular:Irregular RR, Tachycardic Respiratory: Bilateral rhonchi, on 2L NC Abdomen: Soft, nontender, not distended, normal bowel sounds. : aburto in place, Skin: Warm to touch, dry, no rashes noted Musculoskeletal: No gross injuries. Able to move all 4 extremities. No pitting edema Neuro: Alert and oriented x3. No focal neuro deficits. Objective Labs 04/01/24 04:40 04/01/24 04:40 Labs: Laboratory Results - last 24 hr 03/31/24 04:33 WBC 13.0 H RBC 4.36 Hgb 11.9 L Hct 36.8 MCV 84 MCH 27.3 MCHC 32.3 RDW Std Deviation 45.0 Plt Count 290 D Neut % (Auto) 78 Lymph % (Auto) 12 [place] % (Auto) 8 Eos % (Auto) 0 Baso % (Auto) 0 Neut # (Auto) 10.2 H Lymph # (Auto) 1.6 [place] # (Auto) 1.1 H Eos # (Auto) 0.0 Baso # (Auto) 0.0 Immature Gran # (Auto) 0.08 H Absolute Nucleated RBC 0.00 Immature Gran % 1 H Nucleated RBC % 0 Sodium 138 Potassium 4.1 Chloride 103 Carbon Dioxide 28.2 Anion Gap 7 BUN 24 H Creatinine 0.7 Estim Creat Clear Calc 83.4 eGFR > 60 BUN/Creatinine Ratio 34 H Glucose 170 H Calculated Osmolality 283 Calcium 9.4 Corrected Calcium 9.7 Magnesium 2.1 Total Bilirubin 0.6 AST 15 ALT 27 Alkaline Phosphatase 67 Total Protein 6.1 Albumin 3.6 Globulin 2.5 Albumin/Globulin Ratio 1.4 ABG Interpretation ABG results: 03/27/24 03/27/24 03/27/24 00:57 09:48 11:53 ABG pH 7.26 L 7.23 L 7.26 L ABG pCO2 57 H 61 H 54 H ABG pO2 71 L 86 286 H D ABG HCO3 25 25 24 ABG O2 Saturation 92 96 101 H ABG Base Excess -2 -3 -3 03/27/24 16:34 ABG pH 7.33 L ABG pCO2 48 ABG pO2 118 H D ABG HCO3 25 ABG O2 Saturation 100 H ABG Base Excess -1 Quality Measures Quality Measures VTE prophylaxis Assessment & Plan Assessment Current Active Medications: Generic Name Dose Route Start Last Admin Trade Name Freq PRN Reason Stop Dose Admin Acetaminophen 650 mg 03/28/24 15:00 03/28/24 15:07 Acetaminophen 325 Mg Tablet PO 04/27/24 14:59 650 mg Q6HR PRN Administration Fever >100.3 or pain Acetylcysteine 3 ml 03/29/24 23:00 03/31/24 06:42 Acetylcysteine Rt Amada 10% 4 Ml Nebu INH 04/28/24 22:59 3 ml Q8HRRT MANDA Administration Apixaban 5 mg 03/28/24 21:00 03/31/24 08:34 Apixaban 2.5 Mg Tablet PO 04/27/24 20:59 5 mg BID MANDA Administration Dextrose 25 ml 03/27/24 05:24 Dextrose 50%-Water Inj 50 Ml Syringe IV 04/26/24 05:23 Q15MIN PRN BG 50-70 responsive npo pt Dextrose 50 ml 03/27/24 05:24 Dextrose 50%-Water Inj 50 Ml Syringe IV 04/26/24 05:23 Q15MIN PRN BG <50 OR BG <70 & pt unresponsive Diltiazem HCl 240 mg 03/29/24 09:00 03/30/24 09:18 Diltiazem Cd 120 Mg Capcr PO 04/28/24 08:59 240 mg DAILY MANDA Administration Furosemide 20 mg 03/28/24 12:00 03/31/24 08:35 Furosemide Inj 10 Mg/Ml Vial 2 Ml IVP 04/27/24 11:59 20 mg QDAY MANDA Administration Glucagon 1 mg 03/27/24 05:24 Glucagon Inj 1 Mg Vial IM Q15MIN PRN BG <70, and no IV access Guaifenesin 600 mg 03/27/24 11:14 03/31/24 05:16 Guaifenesin Er 600 Mg Tabcr PO 04/26/24 20:59 600 mg BID PRN Administration cough Insulin Glargine 5 unit 03/31/24 07:55 03/31/24 08:38 Insulin Glargine (Lantus) 5 Unit/0.05 Ml (Per 5 Units) SC 04/30/24 07:54 5 unit QDAY MANDA Administration Insulin Human Lispro 0 unit 03/27/24 07:30 03/31/24 12:06 Insulin Lispro (Admelog) 1 Unit/0.01 Ml Unit SC 04/26/24 07:29 2 unit AC MANDA Administration Protocol Ipratropium [place] 0.5 mg 03/28/24 23:00 03/31/24 06:42 Ipratropium Rt 0.5 Mg/ 2.5 Ml Nebu INH 04/27/24 22:59 0.5 mg Q8HRRT MANDA Administration Levalbuterol HCl 0.63 mg 03/28/24 23:00 03/31/24 06:42 Levalbuterol Rt 0.63 Mg/3 Ml Nebu INH 04/27/24 22:59 0.63 mg Q8HRRT MANDA Administration Methylprednisolone Sodium Succinate 40 mg 03/30/24 09:00 03/31/24 08:34 Methylprednisolone Sod Succ 40 Mg Vial IVP 04/03/24 08:59 40 mg DAILY MANDA Administration Metoprolol Succinate 25 mg 03/30/24 21:00 03/31/24 08:36 Metoprolol Succinate Xl 25 Mg Tabcr PO 04/29/24 20:59 25 mg BID MANDA Administration Ondansetron HCl 4 mg 03/27/24 04:20 Ondansetron Inj 2 Mg/Ml Inj 2 Ml IV 04/26/24 04:19 Q6H PRN NAUSEA OR VOMITING Protocol Pantoprazole Sodium 40 mg 03/30/24 09:00 03/31/24 08:34 Pantoprazole 40 Mg Tablet PO 04/29/24 08:59 40 mg QDAY MANDA Administration Protocol Plan Sammie Winston is a 63-year-old female with past medical history of COPD, atrial fibrillation, bipolar disorder, polysubstance use and migraine disorder who presented to [facility] emergency department from [facility] snf on 03/27/2024 with a chief complaint of altered mental status. Patient will be admitted to hospital for management of acute encephalopathy, COPD exacerbation and atrial fibrillation with RVR. #Acute encephalopathy-resolved Ddx: Multifactorial, Metabolic versus toxic, U-Tox positive for methamphetamine, pCO2 57 Patient presented from [facility], found by EMS was altered. U tox positive for methamphetamine and THC. Initial ABG showed pCO2 57 TSH 0.55, free T4 1.46 (normal), ammonia 21 B12 431 (normal), Folate 18.77 (normal) Plan: -Continue to treat COPD exacerbation, suspicion of meth intoxication, methamphetamine withdrawal -bedside nurse swallow screen--passed #Acute hypoxic and hypercapnic respiratory failure 2 #COPD exacerbation Patient was found by EMS, SpO2 85, significant wheezing noted, patient was given breathing treatment en route to hospital, in hospital on presentation patient was wheezing, ABG showed pH 7.26, pCO2 57, respiratory acidosis noted, bilateral wheezing noted. Patient was given DuoNeb breathing treatment x 1 and IV methylprednisone 125 x 1 in ED CXR negative for pnuemonia, mild HF MRSA screen negative Plan: -Ipratropium every 4 hours -Levalbuterol every 4 hour -IV Solu-Medrol 40 mg daily -Azithromycin 500 mg IV day for 5 days (03/27- -monitor O2 sats and titrate #Atrial fibrillation with RVR Patient's heart rate in 150s on presentation in ED, EKG significant for A-fib with RVR, patient was given IV diltiazem x 2 in ED Patient on diltiazem 240 p.o. every morning and Eliquis 5 mg p.o. twice daily Chadsvasc score 2 indicating 2.2% stroke risk Has-bled score: 2 points indicating indicating 4.1% risk of bleeding Plan -consult patient's protective services case worker Dr. Jimenez for recommendations. He is out of town -insulation packer protective services case worker Dr. Caldwell consulted. Recs pending. Patient continues to remain in A-fib with tachycardia -per cardio, start MP xL 25 mg BID -continue 240 mg daily PO -continue Eliquis 5 mg PO BID -Telemonitoring -continue to monitor electolytes keeping potassium >4.0 and Mg >2.0 #HFmEF, EF 45-50% Last echo from 2019 shows EF 55%, no bilateral lower extremity edema noted, vascular congestion on chest x-ray suggestive of CHF. Echo on 03/27/24 showed mild systolic dysfunction with EF 45-50%. Plan: - Lasix 20 mg daily -daily weights -monitor IOs #History of type 2 diabetes On admission initial glucose 139. Last A1c 7.1 on 04/2022. This admission 6.3. No medications noticed on chart. -start 5 units glargine -Bedside blood glucose checks ACHS -Insulin lispro sliding scale -Carb consistent low diet after swallow screen -Consulted heel varnisher -Diabetes education #Methamphetamine dependence #THC dependence U-Tox positive for methamphetamine, THC Counseled patient against illicit drug use Referred to social media marketing manager #Bipolar disorder #Migraine disorder Pending med reconciliation DVT prophylaxis: Eliquis 5 mg BID GI prophylaxis: IV Protonix Diet: CHO diet Lines: Peripheral IV Code status: Full code Dispo: refuses SNF. DC next 24 hrs if o2 stable The patient's management plan was discussed with my attending physician Dr. Peres and senior Dr. Mckeon. Danielle Carias, PGY-1 Attending Provider Attestation/Addendum I have discussed and was present for the essential components of the history, physical examination, diagnosis, and treatment plan with the resident. I agree with the patient's care as documented by the resident and amended herein by me. Deng Peres DO. Although this document has been carefully reviewed, there may still be some phonetic and other typographical errors. These errors are purely grammatical due to imperfections in the software program and should not be construed in any way to compromise the substance of the patient's medical care during this visit.
--- NOTE | 2024-03-31 16:27 | PC.PT ---
PT eval only. Patient is at her PLOF. Patient is safe to ambulate to the bathroom and in her room with a FWW and O2. RN made aware.
[2024-03-31] MEDS: INSULIN LISPRO (AdmeLOG) 1 UNIT/0.01 ML UNIT 10 UNIT SC (17:38)
[2024-04-01] VITALS (9 sets, daily range): BP systolic 110–149; BP diastolic 81–102; PULSE 88–128; RESP 13–22; TEMP 36.2–36.8; O2SAT 91–100
[2024-04-01 05:40] LABS: Basophils % (Auto) 0 % (0-2.5); Eosinophils # (Auto) 0.2 Thou/mm3 (0.0-0.5); Eosinophils % (Auto) 1 % (0-10); Hematocrit 41.6 % (36.0-46.0); Hemoglobin 13.4 g/dL (12.0-16.0); Immature Granulocytes % (Auto) 1 % (0-0); Immature Granulocytes Auto 0.11 Thou/mm3 (0.00-0.00); Lymphocytes # (Auto) 2.4 Thou/mm3 (1.0-4.8); Lymphocytes % (Auto) 16 % (10-50); Mean Corpuscular HGB Conc 32.2 g/dl (31.0-37.0); Mean Corpuscular Volume 84 fL (80-100); Monocytes # (Auto) 1.3 Thou/mm3 (0.0-0.8); Monocytes % (Auto) 9 % (0-12); Neutrophils # (Auto) 10.8 Thou/mm3 (1.8-7.7); Neutrophils % (Auto) 74 % (37-80); Nucleated Red Blood Cell % 0 /100 WBC (0); Platelet Count 399 Thou/mm3 (140-440); RDW Standard Deviation 44.3 fL (36.4-46.3); Red Blood Count 4.96 Miln/mm3 (4.00-5.20); White Blood Count 14.7 Thou/mm3 (3.6-11.0)
[2024-04-01 06:13] LABS: Alanine Aminotransferase 41 U/L (10-49); Albumin, Serum 3.7 gm/dL (3.4-4.8); Albumin/Globulin Ratio 1.4 (1.2-2.2); Alkaline Phosphatase 68 U/L (46-116); Anion Gap 7 (7-16); Aspartate Amino Transferase 17 U/L (0-34); BUN/Creatinine Ratio 34 Ratio (12-20); Bilirubin,Total 0.5 mg/dL (0.3-1.2); Blood Urea Nitrogen 27 mg/dL (9-23); Calcium 9.3 mg/dL (8.3-10.6); Calcium (Corrected) 9.5 mg/dL (8.5-10.1); Carbon Dioxide 29.9 mMol/L (20.0-31.0); Chloride 103 mMol/L (98-107); Creatinine (Component) 0.8 mg/dL (0.6-1.3); Estimated Creatinine Clearance 71.5 mL/min (>60); Globulin 2.6 gm/dL (2.3-3.5); Glucose 145 mg/dL (74-106); Osmolality,Calculated 287 (275-295); Potassium 4.3 mMol/L (3.4-5.1); Sodium 140 mMol/L (136-145); Total Protein 6.3 gm/dL (5.7-8.2); eGFR > 60 See Note
[2024-04-01] MEDS: IPRATROPIUM RT 0.5 MG/ 2.5 ML NEBU INH (06:55)
[2024-04-01] MEDS: LEVALBUTEROL RT 0.63 MG/3 ML NEBU INH (06:55)
[2024-04-01] MEDS: ACETYLCYSTEINE RT SOL 10% 4 ML NEBU 3 ML INH (06:55)
[2024-04-01] MEDS: FUROSEMIDE INJ 10 MG/ML VIAL 2 ML 20 MG IVP (08:25)
[2024-04-01] MEDS: DILTIAZEM CD 120 MG CAPCR 240 MG PO (08:26)
[2024-04-01] MEDS: PANTOPRAZOLE 40 MG TABLET PO (08:26)
[2024-04-01] MEDS: METOPROLOL SUCCINATE XL 25 MG TABCR PO (08:26)
[2024-04-01] MEDS: APIXABAN 2.5 MG TABLET 5 MG PO (08:26)
[2024-04-01] MEDS: INSULIN GLARGINE (Lantus) 5 UNIT/0.05 ML (PER 5 UNITS) SC (08:32)
--- NOTE | 2024-04-01 10:27 | PD.RESDS ---
Planned Discharge Date 04/01/24 DS: Providers Provider Date of admission: 03/27/24 04:20 Primary care physician: Physician No Primary/Family Admitting Provider: Edgar Sánchez MD Attending Provider on Admission: Val Brooks DO Consults: 03/30/24 08:24 Consult to Cardiology Stat Comment: Afib/rvr in setting of HFmEF/Meth use Consulting Provider: Gentry Caldwell 03/31/24 11:02 Referral Physical Therapy Routine Comment: Physician Instructions: Instructions: PT eval for SNF Attending Provider on DC: Danielle Carias MD Discharging Provider: Danielle Carias MD Hospital Course Hospital Course Hospital course: Seen and examined at bedside. States she is feeling better today. Denies chest pain or palpitations. On 3LNC at 94%. Was planning to send pt to SNF on oxygen, however she is refusing. Per cardiology, continue diltiazem 240 mg daily and start MP xL 25mg BID. HR has improved today 90-100. She remains in afib after reviewing tele. PT eval says she desats to 86%. Will continue to titrate o2 for possible discharge tomorrow. Time Spent with Patient Time attestation: Total time spent providing and/or coordinating discharge services: Exam Vital Signs Temp Pulse Resp BP Pulse Ox O2 Del Method O2 Flow Rate 97.5 F 117 H 22 H 110/90 H 91 L Nasal Cannula 1 04/01/24 08:00 04/01/24 08:26 04/01/24 08:00 04/01/24 08:26 04/01/24 08:00 04/01/24 08:00 04/01/24 08:00 FiO2 55 04/01/24 08:00 Discharge Plan Plan Patient Disposition: HOME (Self Care) Disposition Comment: Pt will be going to the [facility] Prescriptions/Referrals Prescriptions/Med Rec: New metoprolol succinate 50 mg tablet extended release 24 hr 50 mg PO QDAY 30 Days Qty: 30 0RF methylprednisolone [Medrol (Mat)] 4 mg tablets,dose pack 4 mg PO QAM Qty: 21 0RF metformin 500 mg tablet 500 mg PO QDAY Qty: 30 0RF furosemide [Lasix] 20 mg tablet 20 mg PO Q OTHER DAY Qty: 15 0RF Trelegy Ellipta 200-62.5-25 mcg blister with device 1 inh inhalation QDAY Qty: 60 0RF Continued albuterol sulfate 90 mcg/actuation HFA aerosol inhaler 1 inh inhalation QID PRN (Reason: shortness of breath or wheezing) Qty: 8.5 0RF Eliquis 5 mg tablet 5 mg PO BID Qty: 60 0RF diltiazem HCl 240 mg capsule,extended release 24 hr 240 mg PO QAM Qty: 30 0RF Referrals: No Primary/Family,Physician [Primary Care Provider] - Patient/Caregiver Discharge Instructions Print Language: Bermudian Stand Alone Forms: Sofia Award Info., Patient Portal Info Letter Discharge Order Discharge Orders: Discharge (Routine); Ordered 04/01/24 Ordered By: Jose Peres
--- NOTE | 2024-04-01 16:22 | ESDS_ITS ---
Planned Discharge Date 04/01/24 DS: Providers Provider Date of admission: 03/27/24 04:20 Primary care physician: Physician No Primary/Family Admitting Provider: Edgar Sánchez MD Attending Provider on Admission: Val Brooks DO Consults: 03/30/24 08:24 Consult to Cardiology Stat Comment: Afib/rvr in setting of HFmEF/Meth use Consulting Provider: Gentry Caldwell 03/31/24 11:02 Referral Physical Therapy Routine Comment: Physician Instructions: Instructions: PT eval for SNF Attending Provider on DC: Jose Peres DO Discharging Provider: Augustus Kendrick DO DS: Diagnosis Problem List Completed Was Problem List Reviewed/Reconciled?: Yes Hospital Course Hospital Course Hospital course: Discharge summary: Patient is a 63-year-old female with a medical history of COPD, primary hypertension, diabetes mellitus type 2, CVA, A-fib, bipolar disorder, polysubstance drug use and migraine headaches who presents to [facility] emergency department on [facility] with chief complaint of shortness of breath. Admitted for acute encephalopathy, COPD exacerbation, and atrial fibrillation with RVR. Encephalopathy most likely multi factorial. For A-fib patient was given diltiazem 3 times in the ED, started on a diltiazem and heparin drip and then eventually converted to oral diltiazem with Eliquis twice daily. Started on BiPAP for acute hypoxic and hypercapnic respiratory failure secondary to COPD exacerbation. Was given DuoNeb breathing treatments, IV steroids, azithromycin. Echo with an EF of 45 to 50%, started on Lasix 20 mg daily with daily weights and strict I's and O's. Hospital course was complicated by continuous episodes of A-fib with RVR and patient was given extra doses of IV push diltiazem with improvement. Cardiology consulted and recommended starting metoprolol succinate 25 mg twice daily. Over time patient was eventually able to be weaned off BiPAP, heart rate had stabilized below 110 on diltiazem and metoprolol. After treatment of A-fib with RVR, COPD exacerbation patient's encephalopathy had resolved. She was back to her normal baseline. Still requiring O2 however patient was declining transfer to SNF for continued care. Patient understood risks of refusing placement, up to and including , at SNF for oxygen requirements. She completed her course of oral antibiotics during her hospitalization and was discharged on continued steroids and Trelegy for COPD exacerbation. Will continue her diltiazem, metoprolol, Lasix and Eliquis for A- fib control. Patient was discharged from hospital. Discharge diagnosis: #Acute encephalopathy-resolved #Acute hypoxic and hypercapnic respiratory failure 2/2 #COPD exacerbation #Atrial fibrillation with RVR #HFmEF, EF 45-50% #History of type 2 diabetes #Methamphetamine dependence #THC dependence #Bipolar disorder #Migraine disorder Discharge instructions: Take medications as prescribed. Please follow-up with your PCP in 1 week. Patient was evaluated seen with my attending Dr. Peres, Augustus Kendrick, , PGY1 Time Spent with Patient Time attestation: Total time spent providing and/or coordinating discharge services: Exam Vital Signs Temp Pulse Resp BP Pulse Ox O2 Del Method O2 Flow Rate 98.2 F 128 H 20 125/83 92 L Room Air 1 04/01/24 12:00 04/01/24 12:04/01/24 12:04/01/24 12:00 04/01/24 12:00 04/01/24 12:04/01/24 08:00 FiO2 5 04/01/24 12:00 Narrative Exam General: Unkempt elderly female, cooperative, tearful HEENT: NCAT, No JVD noted. Pupils are equal and reactive to light bilaterally Cardiovascular:Irregular rhythm, regular rate Respiratory: Bilateral rhonchi, improved from previous Abdomen: Soft, nontender, not distended, normal bowel sounds. Skin: Warm to touch, dry Musculoskeletal: Moves all extremities spontaneously Neuro: Alert and oriented x3. No focal neuro deficits. Discharge Plan Plan Patient Disposition: HOME (Self Care) Disposition Comment: Pt will be going to the [facility] Prescriptions/Referrals Prescriptions/Med Rec: New metoprolol succinate 50 mg tablet extended release 24 hr 50 mg PO QDAY 30 Days Qty: 30 0RF methylprednisolone [Medrol (Mat)] 4 mg tablets,dose pack 4 mg PO QAM Qty: 21 0RF metformin 500 mg tablet 500 mg PO QDAY Qty: 30 0RF furosemide [Lasix] 20 mg tablet 20 mg PO Q OTHER DAY Qty: 15 0RF Trelegy Ellipta 200-62.5-25 mcg blister with device 1 inh inhalation QDAY Qty: 60 0RF Continued albuterol sulfate 90 mcg/actuation HFA aerosol inhaler 1 inh inhalation QID PRN (Reason: shortness of breath or wheezing) Qty: 8.5 0RF Eliquis 5 mg tablet 5 mg PO BID Qty: 60 0RF diltiazem HCl 240 mg capsule,extended release 24 hr 240 mg PO QAM Qty: 30 0RF Referrals: No Primary/Family,Physician [Primary Care Provider] - Patient/Caregiver Discharge Instructions Other Discharge Activity Instructions:: Take medications as prescribed. Please follow-up with your PCP in 1 week. Print Language: Chinese Stand Alone Forms: [employer] Award Info., Patient Portal Info Letter Discharge Order Discharge Orders: Discharge (Routine); Ordered 04/01/24 Ordered By: Jose Peres Quality Discharge Quality Measures VTE prophylaxis Attestestation Attestation I have discussed and was present for the essential components of the discharge history, physical examination, diagnosis, and discharge treatment plan with the resident. I agree with the patient's discharge care as documented by the resident and amended herein by me. Deng Peres, DO. The patient understood all discharge instructions, all questions were answered satisfactorily. The patient was instructed to return to the Emergency Department is symptoms worsened or persisted. SpO2 on room air 90 to 92%, optimally I would like the patient to go to SNF for further rehabilitation and oxygen therapy however the patient presently is homeless, resides at the [facility] and we are unable to send oxygen to that facility. The p atient states she is unwilling to go to SNF even for the short-term due to the fact she has someone taking care of her dogs at the [facility] which she wants to get back to. The patient does not ambulate very much at all, she is in a wheelchair most of the time. The patient will be discharged with a course of steroids and we started her on Trelegy Ellipta. The patient was stable, afebrile, tolerating p.o. intake and ambulatory at time of discharge. Although this document has been carefully reviewed, there may still be some phonetic and other typographical errors. These errors are purely grammatical due to imperfections in the software program and should not be construed in any way to compromise the substance of the patient's medical care during this visit.
== END 2024-04-01 11:50 | disposition home or self-care (01) | DRG 140 ==
LOC: SERX 03-27 03:19 → SERHOLD 03-27 04:49 → S2NX 03-27 22:19
PROVIDERS: Student in an Organized Health Care Education/Training Program; Admitting Provider Student in an Organized Health Care Education/Training Program; Emergency Provider Emergency Medicine; Visit Provider Internal Medicine
DX: J44.1 Chronic obstructive pulmonary disease with (acute) exacerbation (principal); G93.40 Encephalopathy, unspecified; J96.01 Acute respiratory failure with hypoxia; J96.02 Acute respiratory failure with hypercapnia; I11.0 Hypertensive heart disease with heart failure; I48.19 Other persistent atrial fibrillation; F31.9 Bipolar disorder, unspecified; J44.0 Chronic obstructive pulmonary disease with (acute) lower respiratory infection; F15.20 Other stimulant dependence, uncomplicated; F12.20 Cannabis dependence, uncomplicated; I50.40 Unspecified combined systolic (congestive) and diastolic (congestive) heart failure; G43.909 Migraine, unspecified, not intractable, without status migrainosus; E78.5 Hyperlipidemia, unspecified; D72.829 Elevated white blood cell count, unspecified; Z59.00 Homelessness unspecified; E11.65 Type 2 diabetes mellitus with hyperglycemia; Z87.891 Personal history of nicotine dependence; E87.29 Other acidosis; Z79.01 Long term (current) use of anticoagulants; Z86.73 Personal history of transient ischemic attack (TIA), and cerebral infarction without residual deficits; Z56.0 Unemployment, unspecified; Z79.899 Other long term (current) drug therapy; Z79.4 Long term (current) use of insulin; Z88.0 Allergy status to penicillin; Z88.6 Allergy status to analgesic agent; Z11.52 Encounter for screening for COVID-19
CPT/HCPCS: 36415; 36600; 70450; 71045; 80053; 80061; 80307; 80320; 81001; 82140; 82607; 82746; 82803; 83036; 83735; 83880; 84100; 84439; 84443; 84484; 85025; 85610; 85730; 87081; 87400; 87811; 93005; 93306; 94640; 94660; 96372; 97162; 99291; A9270; J0456; J1643; J1644; J1815; J1940; J2470; J2919; J3490; J7050; G0480